=== PATIENT | female | born 1985 | race Caucasian/White ===

== ENCOUNTER 2016-12-29 10:49 | Emergency (ER) | payer OTHER ==
[~2016-12-29] VITALS: Ht 172.7 cm; Wt 97.5 kg
[~2016-12-29 10:49] MED LIST: BACL10TA PO; BUPR150T6 PO; CLON0.5T3 PO; HYDR50CA2 PO; LAMO100T PO; PANT40TA5 PO; PARO20TA55 PO; TRAM50TA PO
[2016-12-29 11:34] VITALS: BP 145/82
--- NOTE | 2016-12-29 11:50 | PHYS DOC ---
Past Medical History Past Medical History: Anxiety, Bipolar, Depression, IBS, Unknown, Other Additional Past Medical Histor: PTSD, 2 fx vertebrae, 2 herniated discs, SMA syndrome Past Surgical History: Cholecystectomy, Tonsillectomy, Tubal ligation, Other Additional Past Surgical Histo: "duodenojejunostomy" Alcohol Use: None Drug Use: Marijuana Adult General Chief Complaint Chief Complaint: SORE THROAT [facility] HPI Patient is a 31 year old female presents emergency room today with 3 complaints : 1. Atraumatic sore throat that began this morning when she woke up. Patient reports that she's had 2 children in the home with strep throat over the past 2- 3 weeks. She herself denies any fevers or chills. She reports mild pain with swallowing. She denies antibiotic use, hospitalization or foreign travel within the past 90 days. 2. Right hip pain secondary to a slip and fall 4 days ago while at home. Patient complains that she slipped at the top of the stairs and landed on her right hip. She states that he has been bruised and painful since that period of time. She has been able to bear weight and walk. 3. Pain to the left hand secondary to striking her hand on a carpet tack strip with her slip and fall. She states that the redness and swelling has settled down and that she just currently wants the wound checked for evidence of infection. Review of Systems Review of Systems Constitutional: Denies fever or chills [] Eyes: Denies change in visual acuity, redness, or eye pain [] HENT: Denies nasal congestion or sore throat [] Respiratory: Denies cough or shortness of breath [] Cardiovascular: No additional information not addressed in HPI [] GI: Denies abdominal pain, nausea, vomiting, bloody stools or diarrhea [] : Denies dysuria or hematuria [] Musculoskeletal: Denies back pain or joint pain [] Integument: Denies rash or skin lesions [] Neurologic: Denies headache, focal weakness or sensory changes [] Endocrine: Denies polyuria or polydipsia [] Allergies Allergies Allergies Coded Allergies Type Severity Reaction Last Updated Verified aspirin Allergy Intermediate 06/17/16 Yes bee venom (honey bee) Allergy Intermediate SWELLING 06/17/16 Yes Penicillins Adverse Reaction Intermediate 06/17/16 Yes Physical Exam Physical Exam Constitutional: Well developed, well nourished, no acute distress, non-toxic appearance. [] HENT: Normocephalic, atraumatic, bilateral external ears normal, oropharynx moist, no oral exudates, nose normal. There is no trismus or hot potato speech. Posterior oropharynx is with only mild erythema and cobblestoning. There is no tonsillar exudate, peritonsillar swelling or uvular deviation. Eyes: PERRLA, EOMI, conjunctiva normal, no discharge. [] Neck: Normal range of motion, no tenderness, supple, no stridor. There is no meningismus or cervical lymphadenopathy. Cardiovascular:Heart rate regular rhythm, no murmur [] Lungs & Thorax: Bilateral breath sounds clear to auscultation [] Abdomen: Bowel sounds normal, soft, no tenderness, no masses, no pulsatile masses. [] Skin: Warm, dry, no erythema, no rash. [] Back: No tenderness, no CVA tenderness. [] Extremities: Right hip with a bruise to the posterior lateral aspect of the gluteus. There is tenderness in this area. There is no instability or crepitus. Patient's hip is stable without crepitation upon flexion, extension or circumduction. Patient's pelvis is nontender to palpation and is stable. Neurologic: Alert and oriented X 3, normal motor function, normal sensory function, no focal deficits noted. [] Psychologic: Affect normal, judgement normal, mood normal. [] Current Patient Data Vital Signs Vital Signs Date Time Temp Pulse Resp B/P Pulse Ox O2 Delivery O2 Flow Rate FiO2 12/29/16 11:34 98.3 87 18 145/82 99 Room Air 98.3 Lab Values Laboratory Tests Test 12/29/16 12:05 Group A Streptococcus Rapid Negative (NEGATIVE) EKG EKG [] Radiology/Procedures Radiology/Procedures [[facility] [address] [place] [address] IMAGING REPORT Signed PATIENT: KELLY SANTOS ACCOUNT: [id number] : 1985 LOCATION: ER AGE: 31 SEX: F EXAM STATUS: REG ER ORD. PHYSICIAN: PITA GEE REASON: pain after fall 4 days ago PROCEDURE: HIP RIGHT 2V WITH PELVIS Pelvis with right hip, 3 views, 12/29/2016: History: Fall, pain No fracture or dislocation is identified. The hip joints are well preserved. 2 surgical clips overlie the upper pelvis. Sclerotic changes are evident at the symphysis pubis and both sacroiliac joints. A focal area of sclerosis in the left iliac bone is probably a bone island. IMPRESSION: No acute pelvic or right hip abnormality is detected. DICTATED and SIGNED BY: TRACIE LUKE MD DATE: 12/29/16 3499 CC: PITA GEE; NO PCP ~ ] Course & Med Decision Making Course & Med Decision Making Pertinent Labs and Imaging studies reviewed. (See chart for details) [] Dragon Disclaimer Dragon Disclaimer This electronic medical record was generated, in whole or in part, using a voice recognition dictation system. Departure Departure Impression: Primary Impression: Pharyngitis Additional Impression: Contusion, hip Disposition: 01 HOME, SELF-CARE Condition: GOOD Referrals: NO PCP (PCP) Patient Instructions: Contusion, [id number], Viral and Bacterial Pharyngitis , [id number] Additional Instructions: 1. Rapid strep test here today is negative. You will be contacted if the culture is positive. At this time, there is no evidence of need for antibiotics. 2. The x-rays of your right hip and pelvis are normal. You bruised your hip. 3. Review the discharge instructions for self-care and reasons to return the emergency department. 4. You can take ibuprofen every 8 hours or naproxen every 12 hours for the bruise and hip pain. 5. Be sure to follow up with your primary care doctor within the next 5-7 days. Problem Qualifiers PITA GEE Dec 29, 2016 11:50
[2016-12-29 12:37] LABS: NEGATIVE OBC STREP NEG; POSITIVE OBC STREP POS
--- NOTE | 2016-12-29 12:49 | RAD ---
Pelvis with right hip, 3 views, 12/29/2016: History: Fall, pain No fracture or dislocation is identified. The hip joints are well preserved. 2 surgical clips overlie the upper pelvis. Sclerotic changes are evident at the symphysis pubis and both sacroiliac joints. A focal area of sclerosis in the left iliac bone is probably a bone island. IMPRESSION: No acute pelvic or right hip abnormality is detected.
== END 2016-12-29 13:04 | disposition home or self-care (01) ==
LOC: ER 10:52
DX: J02.9 Acute pharyngitis, unspecified (principal); S70.01XA Contusion of right hip, initial encounter; F31.9 Bipolar disorder, unspecified; F12.10 Cannabis abuse, uncomplicated; F43.10 Post-traumatic stress disorder, unspecified; K58.9 Irritable bowel syndrome, unspecified; Z90.49 Acquired absence of other specified parts of digestive tract; Z88.5 Allergy status to narcotic agent; Z88.0 Allergy status to penicillin; Z88.6 Allergy status to analgesic agent; Z91.030 Bee allergy status; W10.8XXA Fall (on) (from) other stairs and steps, initial encounter; Y93.89 Activity, other specified; Y92.098 Other place in other non-institutional residence as the place of occurrence of the external cause; Y99.8 Other external cause status
CPT/HCPCS: 73502; 87070; 87880; 99285-25

== ENCOUNTER 2017-01-03 09:26 | Emergency (ER) | payer OTHER ==
[~2017-01-03] VITALS: Ht 172.7 cm; Wt 99.8 kg
[2017-01-03 09:33] VITALS: BP 138/83
--- NOTE | 2017-01-03 10:24 | PHYS DOC ---
Past Medical History Past Medical History: Anxiety, Bipolar, Depression, IBS, Unknown, Other Additional Past Medical Histor: PTSD, 2 fx vertebrae, 2 herniated discs, SMA syndrome Past Surgical History: Cholecystectomy, Tonsillectomy, Tubal ligation, Other Additional Past Surgical Histo: "duodenojejunostomy" Alcohol Use: None Drug Use: Marijuana Adult General Chief Complaint Chief Complaint: Congestion HPI HPI Patient is a 31 year old female presents emergency department stating that she was seen here last for sore throat. She states that they did swab her throat for strep at that time was negative. She does state that she's been having sick family members daughter and son. Parent denies any fever chills or nausea vomiting recent time. She does state however she's had a cough has been productive green. Review of Systems Review of Systems Constitutional: Denies fever or chills [] Eyes: Denies change in visual acuity, redness, or eye pain [] HENT: nasal congestion denies sore throat [] Respiratory: productive cough denies shortness of breath [] Cardiovascular: No additional information not addressed in HPI [] GI: Denies abdominal pain, nausea, vomiting, bloody stools or diarrhea [] : Denies dysuria or hematuria [] Musculoskeletal: Denies back pain or joint pain [] Integument: Denies rash or skin lesions [] Neurologic: Denies headache, focal weakness or sensory changes [] Allergies Allergies Allergies Coded Allergies Type Severity Reaction Last Updated Verified aspirin Allergy Intermediate 06/17/16 Yes bee venom (honey bee) Allergy Intermediate SWELLING 06/17/16 Yes Penicillins Adverse Reaction Intermediate 06/17/16 Yes Physical Exam Physical Exam Constitutional: Well developed, well nourished, no acute distress, non-toxic appearance. [] HENT: Normocephalic, atraumatic, bilateral external ears normal, oropharynx moist, no oral exudates, nose normal. Bilateral TM normal, throat without erythema or exudate. Patient with maxillary sinus tenderness Eyes: PERRLA, EOMI, conjunctiva normal, no discharge. [] Neck: Normal range of motion, no tenderness, supple, no stridor. [] Cardiovascular:Heart rate regular rhythm, no murmur [] Lungs & Thorax: Bilateral breath sounds clear to auscultation [] Skin: Warm, dry, no erythema, no rash. [] Back: No tenderness Extremities: No tenderness, no cyanosis, no clubbing, ROM intact, no edema. [] Neurologic: Alert and oriented X 3, normal motor function, normal sensory function, no focal deficits noted. [] Psychologic: Affect normal, judgement normal, mood normal. [] Current Patient Data Vital Signs Vital Signs Date Time Temp Pulse Resp B/P Pulse Ox O2 Delivery O2 Flow Rate FiO2 01/03/17 09:33 97.8 85 20 100 Room Air 97.8 Lab Values Laboratory Tests Test 01/03/17 10:05 Influenza Type A Antigen Negative (NEGATIVE) Influenza Type B Antigen Negative (NEGATIVE) EKG EKG [] Radiology/Procedures Radiology/Procedures [][facility] [address] [place], [place] [id number] IMAGING REPORT Signed PATIENT: KELLY SANTOS ACCOUNT: [id number] : 1985 LOCATION: ER AGE: 31 SEX: F EXAM STATUS: REG ER ORD. PHYSICIAN: TATA CATALAN NP REASON: cough, congestion for 6 days PROCEDURE: CHEST PA & LATERAL Chest, 2 views, 01/03/2017: History: Cough, congestion Comparison is made to a study from 07/10/2012. The heart size and pulmonary vascularity are normal. No pulmonary infiltrates are seen. There is no evidence of pleural fluid. IMPRESSION: No acute cardiopulmonary abnormality is detected. DICTATED and SIGNED BY: TRACIE LUKE MD DATE: 01/03/17 1044 CC: TATA CATALAN TILE DECORATOR; NO PCP ~ Course & Med Decision Making Course & Med Decision Making Pertinent Labs and Imaging studies reviewed. (See chart for details) Influenza swab was negative. Chest x-ray was negative. Patient will be placed on doxycycline for a sinus infection. Patient be discharged home in stable condition since symptoms to return back to emergency department has been provided. Patient agrees with discharge instructions treatment regimens and follow-up recommendations. [] Dragon Disclaimer Dragon Disclaimer This electronic medical record was generated, in whole or in part, using a voice recognition dictation system. Departure Departure Impression: Primary Impression: Sinusitis Disposition: 01 HOME, SELF-CARE Condition: STABLE Referrals: NO PCP (PCP) Patient Instructions: Sinusitis, Hwma-[id number] Additional Instructions: Activity as tolerated. Medication as prescribed. Tylenol or ibuprofen for fever chills or generalized body aches and discomfort Drink plenty of fluids. Primary care physician next 5-7 days. Return back to emergency department sign symptoms become worse. Scripts Doxycycline Hyclate 100 Mg Capsule1 Cap PO BID #20 CAP Prov:TATA CATALAN NP 01/03/17 TATA CATALAN NP Jan 03, 2017 10:24
[2017-01-03 10:47] LABS: OBC FLU VALID
--- NOTE | 2017-01-03 10:48 | RAD ---
Chest, 2 views, 01/03/2017: History: Cough, congestion Comparison is made to a study from 07/10/2012. The heart size and pulmonary vascularity are normal. No pulmonary infiltrates are seen. There is no evidence of pleural fluid. IMPRESSION: No acute cardiopulmonary abnormality is detected.
[2017-01-03] MEDS ORDERED: DOXY100C2 PO (10:57)
== END 2017-01-03 11:59 | disposition home or self-care (01) ==
LOC: ER 09:26
DX: J32.9 Chronic sinusitis, unspecified (principal); K58.9 Irritable bowel syndrome, unspecified; F43.10 Post-traumatic stress disorder, unspecified; F31.9 Bipolar disorder, unspecified; G12.9 Spinal muscular atrophy, unspecified; F12.10 Cannabis abuse, uncomplicated; Z98.890 Other specified postprocedural states; Z88.0 Allergy status to penicillin; Z88.6 Allergy status to analgesic agent; Z91.030 Bee allergy status
CPT/HCPCS: 71020; 87804; 99285-25

== ENCOUNTER 2017-03-14 13:56 | Emergency (ER) | payer OTHER ==
[~2017-03-14] VITALS: Ht 172.7 cm; Wt 98.9 kg
[~2017-03-14 13:56] MED LIST changes: +DOXY100C2 PO
[2017-03-14 14:56] LABS: BASO # 0.1 x10^3/uL (0.0-0.2); BASO % 1 % (0-3); EOS % 1 % (0-3); HEMATOCRIT 36.4 % (36.0-47.0); HEMOGLOBIN 11.9 g/dL (12.0-15.5); LYMPH # 5.1 x10^3/uL (1.0-4.8); LYMPH % 43 % (24-48); MEAN CORPUSCULAR HEMOGLOBIN 26 pg (25-35); MEAN CORPUSCULAR HGB CONC 33 g/dL (31-37); MEAN CORPUSCULAR VOLUME 80 fL (79-100); MONO % 7 % (0-9); NEUT % 48 % (31-73); PLATELET COUNT 207 x10^3/uL (140-400); RED BLOOD COUNT 4.57 x10^6/uL (3.50-5.40); WHITE BLOOD COUNT 11.9 x10^3/uL (4.0-11.0)
[2017-03-14 14:58] LABS: BILIRUBIN,URINE NEGATIVE (NEG); GLUCOSE,URINE NEGATIVE (NEG); NITRITE,URINE NEGATIVE (NEG); PROTEIN,URINE NEGATIVE (NEG-TRACE); UROBILINOGEN,URINE 0.2 mg/dL (0.2 mg/dL)
--- NOTE | 2017-03-14 15:05 | PHYS DOC ---
Past Medical History Past Medical History: Anxiety, Bipolar, Depression, IBS, Unknown, Other Additional Past Medical Histor: PTSD, 2 fx vertebrae, 2 herniated discs, SMA syndrome Past Surgical History: Cholecystectomy, Tonsillectomy, Tubal ligation, Other Additional Past Surgical Histo: "duodenojejunostomy" Alcohol Use: None Drug Use: Marijuana Adult General Chief Complaint Chief Complaint: OTHER COMPLAINTS HPI HPI Patient is a 32 year old female presenting to the emergency department for evaluation of paresthesias and pain status post electric shock injury. She says that she was cleaning and was wiping down the electric cord for her refrigerator when she accidentally touched it with her left hand and felt an intense shock and was stuck on the cord for approximately 10 seconds. She has been feeling paresthesias and shooting pain into various areas that is intermittent for the past several hours and she said she was concerned about it and came to the emergency department. There is no open skin wounds fevers chills nausea vomiting chest pain shortness of breath or dizziness. No unilateral weakness. Review of Systems Review of Systems Constitutional: Denies fever or chills [] Eyes: Denies change in visual acuity, redness, or eye pain [] Respiratory: Denies cough or shortness of breath [] Cardiovascular: No CP GI: Denies abdominal pain, nausea, vomiting, bloody stools or diarrhea [] Musculoskeletal: myalgias and arthralgias Integument: Denies rash or skin lesions [] Neurologic: Denies headache, focal weakness.+ diffuse sensory changes [] Allergies Allergies Allergies Coded Allergies Type Severity Reaction Last Updated Verified aspirin Allergy Intermediate 06/17/16 Yes bee venom (honey bee) Allergy Intermediate SWELLING 06/17/16 Yes Penicillins Adverse Reaction Intermediate 06/17/16 Yes Physical Exam Physical Exam Constitutional: Well developed, well nourished, no acute distress, non-toxic appearance. [] Eyes: PERRLA, EOMI, conjunctiva normal, no discharge. [] Cardiovascular:Heart rate regular rhythm, no murmur [] Lungs & Thorax: Bilateral breath sounds clear to auscultation [] Abdomen: Bowel sounds normal, soft, no tenderness, no masses, no pulsatile masses. [] Skin: Warm, dry, no erythema, no rash. [] Extremities: No tenderness, no cyanosis, no clubbing, ROM intact, no edema. [] Neurologic: Alert and oriented X 3, normal motor function, normal sensory function, no focal deficits noted. [] Current Patient Data Lab Values Laboratory Tests Test 03/14/17 14:45 White Blood Count 11.9 x10^3/uL (4.0-11.0) H Red Blood Count 4.57 x10^6/uL (3.50-5.40) Hemoglobin 11.9 g/dL (12.0-15.5) L Hematocrit 36.4 % (36.0-47.0) Mean Corpuscular Volume 80 fL (79-100) Mean Corpuscular Hemoglobin 26 pg (25-35) Mean Corpuscular Hemoglobin Concent 33 g/dL (31-37) Red Cell Distribution Width 16.0 % (11.5-14.5) H Platelet Count 207 x10^3/uL (140-400) Neutrophils (%) (Auto) 48 % (31-73) Lymphocytes (%) (Auto) 43 % (24-48) Monocytes (%) (Auto) 7 % (0-9) Eosinophils (%) (Auto) 1 % (0-3) Basophils (%) (Auto) 1 % (0-3) Neutrophils # (Auto) 5.7 x10^3uL (1.8-7.7) Lymphocytes # (Auto) 5.1 x10^3/uL (1.0-4.8) H Monocytes # (Auto) 0.9 x10^3/uL (0.0-1.1) Eosinophils # (Auto) 0.2 x10^3/uL (0.0-0.7) Basophils # (Auto) 0.1 x10^3/uL (0.0-0.2) Urine Collection Type Unknown Urine Color Yellow Urine Clarity Clear Urine pH 6.0 Urine Specific [place] 1.025 Urine Protein Negative mg/dL (NEG-TRACE) Urine Glucose (UA) Negative mg/dL (NEG) Urine Ketones (Stick) Negative mg/dL (NEG) Urine Blood Negative (NEG) Urine Nitrite Negative (NEG) Urine Bilirubin Negative (NEG) Urine Urobilinogen Dipstick 0.2 mg/dL (0.2 mg/dL) Urine Leukocyte Esterase Moderate (NEG) Urine RBC 0 /HPF (0-2) Urine WBC 11-20 /HPF (0-4) Urine Squamous Epithelial Cells Many /LPF Urine Bacteria Many /HPF (0-FEW) Urine Mucus Marked /LPF Sodium Level 139 mmol/L (136-145) Potassium Level 3.6 mmol/L (3.5-5.1) Chloride Level 104 mmol/L (98-107) Carbon Dioxide Level 26 mmol/L (21-32) Anion Gap 9 (6-14) Blood Urea Nitrogen 17 mg/dL (7-20) Creatinine 0.8 mg/dL (0.6-1.0) Estimated GFR (Cockcroft-Gault) 83.7 BUN/Creatinine Ratio 21 (6-20) H Glucose Level 75 mg/dL (70-99) Lactic Acid Level 0.8 mmol/L (0.4-2.0) Calcium Level 8.5 mg/dL (8.5-10.1) Total Bilirubin 0.3 mg/dL (0.2-1.0) Aspartate Amino Transferase (AST) 16 U/L (15-37) Alanine Aminotransferase (ALT) 23 U/L (14-59) Alkaline Phosphatase 104 U/L (46-116) Creatine Kinase 216 U/L (26-192) H Troponin I Quantitative < 0.017 ng/mL (0.000-0.055) Total Protein 7.4 g/dL (6.4-8.2) Albumin 3.4 g/dL (3.4-5.0) Albumin/Globulin Ratio 0.9 (1.0-1.7) L Laboratory Tests 03/14/17 14:45 Laboratory Tests 03/14/17 14:45 EKG EKG Normal sinus rhythm with normal axis no deviation no ST elevation or depression and normal T waves. Radiology/Procedures Radiology/Procedures [] Course & Med Decision Making Course & Med Decision Making I searched her body for any electric shock injury and could not find anything. Her EKG is normal and I will get labs and then reassess. Labs are unremarkable for acute pathology. CK is slightly elevated so recommend drinking plenty of fluids and ibuprofen for pain. Patient aware and agreeable with plan for discharge and verbalized understanding of the need for short-term follow-up and strict ER return precautions discussed worsening pain weakness or other general concerns. Dragon Disclaimer Dragon Disclaimer This electronic medical record was generated, in whole or in part, using a voice recognition dictation system. Departure Departure Impression: Primary Impression: Electric shock Additional Impression: Rhabdomyolysis Disposition: HOME, SELF-CARE Condition: GOOD Referrals: NO PCP (PCP) Patient Instructions: Electric Shock Injury Additional Instructions: DRINK PLENTY OF FLUIDS AND TAKE IBUPROFEN FOR PAIN. Scripts Ciprofloxacin Hcl (CIPRO) 250 Mg Tablet 1 TAB PO BID, #6 TAB Prov: KYLIE ARIAS DO 03/14/17 Problem Qualifiers Primary Impression: Electric shock Encounter type: initial encounter Qualified Codes: T75.4XXA - Electrocution , initial encounter KYLIE ARIAS DO March 14, 2017 15:05
[2017-03-14 15:08] VITALS: BP 129/74
[2017-03-14 15:13] LABS: CALCIUM 8.5 mg/dL (8.5-10.1); CREATININE 0.8 mg/dL (0.6-1.0); GFR 83.7; POTASSIUM 3.6 mmol/L (3.5-5.1)
[2017-03-14 15:15] LABS: BACTERIA,URINE MANY /HPF (0-FEW); RBC,URINE 0 /HPF (0-2); SQUAMOUS EPITHELIAL CELL,UR MANY /LPF
--- NOTE | 2017-03-14 15:17 | EKG ---
[facility] [address] [place] [address] Test Date: 2017-03-14 Test Time: 14:38:29 Pat Name: KELLY SANTOS Department: Room: Gender: F [employer]: : 1985 Requested By: KYLIE ARIAS Order Number: [id number] Reading MD: Franky Cabezas Measurements Intervals [place] Rate: 71 P: 31 CT: 184 QRS: 10 QRSD: 86 T: 18 QT: 380 QTc: 418 Interpretive Statements SINUS RHYTHM Electronically Signed On 03-20-2017 9:09:22 CDT by Franky Cabezas
[2017-03-14 15:18] LABS: ALBUMIN 3.4 g/dL (3.4-5.0); ALBUMIN/GLOBULIN RATIO 0.9 (1.0-1.7); TOTAL BILIRUBIN 0.3 mg/dL (0.2-1.0); TOTAL PROTEIN 7.4 g/dL (6.4-8.2)
[2017-03-14] MEDS ORDERED: CIPR250T30 PO (15:44)
== END 2017-03-14 15:55 | disposition home or self-care (01) ==
LOC: ER 13:56
DX: T75.4XXA Electrocution, initial encounter (principal); M62.82 Rhabdomyolysis; R74.8 Abnormal levels of other serum enzymes; F41.9 Anxiety disorder, unspecified; F31.9 Bipolar disorder, unspecified; K58.9 Irritable bowel syndrome, unspecified; F43.10 Post-traumatic stress disorder, unspecified; G12.9 Spinal muscular atrophy, unspecified; F12.10 Cannabis abuse, uncomplicated; Z88.0 Allergy status to penicillin; Z88.6 Allergy status to analgesic agent; Z91.030 Bee allergy status; W86.1XXA Exposure to industrial wiring, appliances and electrical machinery, initial encounter
CPT/HCPCS: 36415; 80053; 81001; 82550; 83605; 84484; 85027; 87086; 93005; 99285-25

== ENCOUNTER 2017-03-20 08:41 | Emergency (ER) | payer OTHER ==
[~2017-03-20 08:41] MED LIST changes: +CIPR250T30 PO
[2017-03-20 09:23] VITALS: BP 149/90
[2017-03-20] MEDS ORDERED: PARO20TA55 PO (10:48)
--- NOTE | 2017-03-20 10:48 | PHYS DOC ---
Past Medical History Past Medical History: Anxiety, Bipolar, Depression, IBS, Unknown, Other Additional Past Medical Histor: PTSD, 2 fx vertebrae, 2 herniated discs, SMA syndrome,PSYCHOSIS Past Surgical History: Cholecystectomy, Tonsillectomy, Tubal ligation, Other Additional Past Surgical Histo: "duodenojejunostomy" Alcohol Use: None Drug Use: Marijuana Adult General Chief Complaint Chief Complaint: MEDICATION REFILL HPI HPI Patient is a 32 year old female presenting to the emergency department with child for a cough. Cough is nonproductive and she has no fevers chills nausea vomiting or shortness of breath. She has not been taking her psychiatric medications including her Paxil which she is out of that she is requesting a refill. She feels tingling in all parts of her body including both extremities at different times however she is not having any pain currently. She is concerned this is related to the electrical shock that I saw her for last week. Review of Systems Review of Systems Constitutional: Denies fever or chills [] Eyes: Denies change in visual acuity, redness, or eye pain [] Respiratory: + cough. No shortness of breath [] Neurologic: Denies headache, focal weakness. + sensory changes [] Allergies Allergies Allergies Coded Allergies Type Severity Reaction Last Updated Verified aspirin Allergy Intermediate 06/17/16 Yes bee venom (honey bee) Allergy Intermediate SWELLING 06/17/16 Yes Penicillins Adverse Reaction Intermediate 06/17/16 Yes Physical Exam Physical Exam Constitutional: Well developed, well nourished, no acute distress, non-toxic appearance. [] Neck: Normal range of motion, no tenderness, supple, no stridor. [] Cardiovascular:Heart rate regular rhythm, no murmur [] Lungs & Thorax: Bilateral breath sounds clear to auscultation [] Extremities: No tenderness, no cyanosis, no clubbing, ROM intact, no edema. [] Neurologic: Alert and oriented X 3, normal motor function, normal sensory function, no focal deficits noted. [] Current Patient Data Vital Signs Vital Signs Date Time Temp Pulse Resp B/P (MAP) Pulse Ox O2 Delivery O2 Flow Rate FiO2 03/20/17 09:23 97.3 77 18 98 Room Air 97.3 EKG EKG [] Radiology/Procedures Radiology/Procedures [] Course & Med Decision Making Course & Med Decision Making Patient discharged in stable condition with refill for her Paxil and supportive care for her cough. Patient told to follow with her psychiatrist and PCP in the next 2-3 days and come back to the ER sooner with any worsening symptoms. Camryn Disclaimer Camryn Disclaimer This electronic medical record was generated, in whole or in part, using a voice recognition dictation system. Departure Departure Impression: Primary Impression: Cough Disposition: 01 HOME, SELF-CARE Condition: GOOD Referrals: NO PCP (PCP) Patient Instructions: Cough, Adult Scripts Paroxetine Hcl (PAXIL) 20 Mg Tablet 1 TAB PO DAILY, #7 TAB 5 Refills Prov: KYLIE ARIAS DO 03/20/17 KYLIE ARIAS DO March 20, 2017 10:48
== END 2017-03-20 10:58 | disposition home or self-care (01) ==
LOC: ER 09:48
DX: Z76.0 Encounter for issue of repeat prescription (principal); R05 Cough; R20.2 Paresthesia of skin; F41.9 Anxiety disorder, unspecified; F31.9 Bipolar disorder, unspecified; K58.9 Irritable bowel syndrome, unspecified; F43.10 Post-traumatic stress disorder, unspecified; F12.10 Cannabis abuse, uncomplicated; Z88.6 Allergy status to analgesic agent; Z88.0 Allergy status to penicillin; Z91.030 Bee allergy status
CPT/HCPCS: 99283

== ENCOUNTER 2017-05-11 16:24 | Emergency (ER) | payer OTHER ==
[~2017-05-11] VITALS: Ht 172.7 cm; Wt 97.5 kg
[~2017-05-11 16:24] MED LIST changes: -PARO20TA55 PO; +PARO20TA99 PO
--- NOTE | 2017-05-11 17:36 | PHYS DOC ---
Past Medical History Past Medical History: Anxiety, Bipolar, Depression, IBS, Unknown, Other Additional Past Medical Histor: PTSD, 2 fx vertebrae, 2 herniated discs, SMA syndrome,PSYCHOSIS Past Surgical History: Cholecystectomy, Tonsillectomy, Tubal ligation, Other Additional Past Surgical Histo: "duodenojejunostomy" Alcohol Use: None Drug Use: Marijuana Adult General Chief Complaint Chief Complaint: BACK PAIN - NO INJURY HPI HPI Patient is a 32 year old female with history of bipolar, IBS, depression, who presents today with moderate left mid back pain radiating to her upper back that began this morning when she woke up. Patient describes the pain as sharp worse on deep breaths. Patient states the last time she had similar pain she had pleurisy. She also states she has history of kidney stones. Patient denies any chest pain. Denies any recent hospitalizations, denies any unilateral leg pain, denies any hormone use. Patient denies any coughing or congestion. Patient is also complaining of a rash on her bilateral lower extremities that began on may after sitting on grass. She is writhing in pain Review of Systems Review of Systems Constitutional: Denies fever or chills [] Eyes: Denies change in visual acuity, redness, or eye pain [] HENT: Denies nasal congestion or sore throat [] Respiratory: See history of present illness Cardiovascular: No additional information not addressed in HPI [] GI: Denies abdominal pain, nausea, vomiting, bloody stools or diarrhea [] : Denies dysuria or hematuria [] Musculoskeletal: Left mid back pain radiating to the upper back. Integument: Denies rash or skin lesions [] Neurologic: Denies headache, focal weakness or sensory changes [] Endocrine: Denies polyuria or polydipsia [] Current Medications Current Medications Current Medications Medications (Trade) Dose Ordered Sig/Salvador Start Time Stop Time Status Last Admin Dose Admin Dexamethasone Sodium Phosphate (Decadron) 10 mg 1X ONCE 05/11/17 17:45 05/11/17 17:46 DC 05/11/17 17:55 10 MG Famotidine (Pepcid) 20 mg 1X ONCE 05/11/17 18:45 05/11/17 18:46 DC 05/11/17 18:38 20 MG Fentanyl Citrate (Fentanyl 2ml Vial) 50 mcg 1X ONCE 05/11/17 19:15 05/11/17 19:16 DC 05/11/17 19:27 50 MCG Info (Do NOT chart on this entry -- for MONITORING) 1 each PRN DAILY PRN 05/11/17 19:15 05/13/17 19:14 Iohexol (Omnipaque 300 Mg/ml) 75 ml 1X ONCE 05/11/17 19:00 05/11/17 19:01 DC 05/11/17 19:14 75 ML Morphine Sulfate 5 mg 1X ONCE 05/11/17 17:45 05/11/17 17:46 DC 05/11/17 17:55 5 MG Multi-Ingredient Mouthwash/Gargle (Gi Cocktail Single Dose) 15 ml 1X ONCE 05/11/17 18:45 05/11/17 18:46 DC 05/11/17 18:37 15 ML Ondansetron HCl (Zofran) 4 mg 1X ONCE 05/11/17 19:15 05/11/17 19:16 DC 05/11/17 19:27 4 MG Sodium Chloride 1,000 ml @ 1,000 mls/hr 1X ONCE 05/11/17 17:45 05/11/17 18:44 DC 05/11/17 17:55 1,000 MLS/HR Allergies Allergies Allergies Coded Allergies Type Severity Reaction Last Updated Verified aspirin Allergy Intermediate 06/17/16 Yes venom-honey bee Allergy Intermediate SWELLING 06/17/16 Yes Penicillins Adverse Reaction Intermediate 06/17/16 Yes Physical Exam Physical Exam Constitutional: Well developed, well nourished, non-toxic appearance. Patient is writhing in pain HENT: Normocephalic, atraumatic, bilateral external ears normal, oropharynx moist, no oral exudates, nose normal. [] Eyes: PERRLA, EOMI, conjunctiva normal, no discharge. [] Neck: Normal range of motion, no tenderness, supple, no stridor. [] Cardiovascular:Heart rate regular rhythm, no murmur [] Lungs & Thorax: Bilateral breath sounds clear to auscultation [] Abdomen: Bowel sounds normal, soft, no tenderness, no masses, no pulsatile masses. [] Skin: Small amount of erythematous papular rash on bilateral inner thighs. Back: No tenderness, no CVA tenderness. [] Extremities: No tenderness, no cyanosis, no clubbing, ROM intact, no edema. [] Neurologic: Alert and oriented X 3, normal motor function, normal sensory function, no focal deficits noted. [] Psychologic: Affect normal, judgement normal, mood normal. [] Current Patient Data Vital Signs Vital Signs Date Time Temp Pulse Resp B/P (MAP) Pulse Ox O2 Delivery O2 Flow Rate FiO2 05/11/17 17:03 97.6 95 18 100 Room Air 97.6 Lab Values Laboratory Tests Test 05/11/17 16:41 05/11/17 17:31 05/11/17 17:49 POC Urine HCG, Qualitative Hcg negative (Negative) Urine Color Yellow Urine Clarity Clear Urine pH 7.5 Urine Specific [place] 1.020 Urine Protein Negative mg/dL (NEG-TRACE) Urine Glucose (UA) Negative mg/dL (NEG) Urine Ketones (Stick) Negative mg/dL (NEG) Urine Blood Negative (NEG) Urine Nitrite Negative (NEG) Urine Bilirubin Negative (NEG) Urine Urobilinogen Dipstick 1.0 mg/dL (0.2 mg/dL) Urine Leukocyte Esterase Small (NEG) Urine RBC 0 /HPF (0-2) Urine WBC 1-4 /HPF (0-4) Urine Squamous Epithelial Cells Occ /LPF Urine Bacteria Few /HPF (0-FEW) Urine Mucus Mod /LPF White Blood Count 14.0 x10^3/uL (4.0-11.0) H Red Blood Count 4.92 x10^6/uL (3.50-5.40) Hemoglobin 12.8 g/dL (12.0-15.5) Hematocrit 39.6 % (36.0-47.0) Mean Corpuscular Volume 81 fL (79-100) Mean Corpuscular Hemoglobin 26 pg (25-35) Mean Corpuscular Hemoglobin Concent 32 g/dL (31-37) Red Cell Distribution Width 15.9 % (11.5-14.5) H Platelet Count 227 x10^3/uL (140-400) Neutrophils (%) (Auto) 48 % (31-73) Lymphocytes (%) (Auto) 41 % (24-48) Monocytes (%) (Auto) 8 % (0-9) Eosinophils (%) (Auto) 2 % (0-3) Basophils (%) (Auto) 1 % (0-3) Neutrophils # (Auto) 6.8 x10^3uL (1.8-7.7) Lymphocytes # (Auto) 5.8 x10^3/uL (1.0-4.8) H Monocytes # (Auto) 1.1 x10^3/uL (0.0-1.1) Eosinophils # (Auto) 0.3 x10^3/uL (0.0-0.7) Basophils # (Auto) 0.1 x10^3/uL (0.0-0.2) Prothrombin Time 13.3 SEC (11.7-14.0) Prothrombin Time INR 1.1 (0.8-1.1) PTT 29 SEC (24-38) D-Dimer (Jayna) 0.79 ug/mlFEU (0.00-0.50) H Sodium Level 144 mmol/L (136-145) Potassium Level 4.1 mmol/L (3.5-5.1) Chloride Level 106 mmol/L (98-107) Carbon Dioxide Level 29 mmol/L (21-32) Anion Gap 9 (6-14) Blood Urea Nitrogen 9 mg/dL (7-20) Creatinine 0.9 mg/dL (0.6-1.0) Estimated GFR (Cockcroft-Gault) 73.0 Glucose Level 86 mg/dL (70-99) Calcium Level 8.7 mg/dL (8.5-10.1) Creatine Kinase 134 U/L (26-192) Creatine Kinase MB (Mass) 0.9 ng/mL (0.0-3.6) Creatine Kinase MB Relative Index 0.7 % (0-4) Troponin I Quantitative < 0.017 ng/mL (0.000-0.055) Urine Opiates Screen Neg (NEG) Urine Methadone Screen Neg (NEG) Urine Barbiturates Neg (NEG) Urine Phencyclidine Screen Neg (NEG) Urine Amphetamine/Methamphetamine Neg (NEG) Urine Benzodiazepines Screen Neg (NEG) Urine Cocaine Screen Neg (NEG) Urine Cannabinoids Screen Pos (NEG) Ethyl Alcohol Level < 10 mg/dL (0-10) Urine Ethyl Alcohol Neg (NEG) Laboratory Tests 05/11/17 17:49 Laboratory Tests 05/11/17 17:49 EKG EKG [] Radiology/Procedures Radiology/Procedures [] PATIENT: KELLY SANTOS ACCOUNT: [id number] : 1985 LOCATION: ER AGE: 32 SEX: F EXAM STATUS: REG ER ORD. PHYSICIAN: SEBAS RICHMOND APRN REASON: elevated d dimer PROCEDURE: CT ANGIOGRAPHY CHEST Indication: Chest pain and back pain as well as elevated d-dimer. Axial imaging through the chest was performed after the administration of intravenous contrast and utilizing the CT angiography protocol. Multiplanar, 3-D and MIP reformations were also performed. One or more of the following individualized dose reduction techniques were utilized for this examination: 1. Automated exposure control 2. Adjustment of the mA and/or kV according to patient size 3. Use of iterative reconstruction technique Evaluation of the pulmonary arterial system is without evidence of thromboembolism. No filling defects are detected. The thoracic aorta is normal caliber. No dissection is seen. No pericardial or pleural fluid is identified. No parenchymal infiltrate, nodule or mass is identified. The upper abdomen is unremarkable. IMPRESSION: No evidence of pulmonary embolus or thoracic aortic dissection. Electronically signed by: Jose Eduardo Hernandez MD (05/11/2017 7:37 PM) [facility] DICTATED and SIGNED BY: JOSE EDUARDO HERNANDEZ MD DATE: 05/11/171928 CC: SEBAS RICHMOND APRN; NO PCP ~ Course & Med Decision Making Course & Med Decision Making Pertinent Labs and Imaging studies reviewed. (See chart for details) Patient is in the ED complaining of left mid back pain radiating to her left upper back that began this morning. Patient states the pain is worse on deep breaths. She states she's had similar pain before when she had pleurisy. Patient denies any coughing or congestion. She is writhing in pain. She is also complaining of poison naeem rash that began on May and would like to be given a steroid shot. CBC with a WBC of 14.0, CMP lipase with no acute findings. Drug screen positive for marijuana use. D-dimer was 0.79. CTA chest was obtained which was negative for any acute findings. Chest x-ray interpreted by Dr. Smith was negative for any acute findings. Patient was given multiple pain medicines in the ED before she got relief of her symptoms. Highly suspect she has pyelonephritis. She was discharged with Cipro. She was instructed to push fluids. Discharged with Medrol Dosepak for her poison naeem rash. She is to follow-up with her PCP next week. Camryn Disclaimer Camryn Disclaimer This electronic medical record was generated, in whole or in part, using a voice recognition dictation system. Departure Departure Impression: Primary Impression: Contact dermatitis due to poison naeem Additional Impression: Pyelonephritis Disposition: HOME, SELF-CARE Condition: STABLE Referrals: NO PCP (PCP) Follow-up with your doctor next week Patient Instructions: Contact Dermatitis, [id number], Pyelonephritis, Adult, [id number] Additional Instructions: You were seen in the ED with a kidney infection. Please complete your antibiotics. You also have poison naeem. Take the prescribed steroids as ordered. Follow-up with your doctor next week or sooner if need be. Come back to the ED symptoms if worsen. Scripts Hydrocodone/Apap 5-325 (NORCO 5-325 TABLET) 1 Each Tablet 1 TAB PO Q4-6HRS Y for PAIN, #10 TAB must fill cipro prior to narco Prov: SEBAS RICHMOND APRN 05/11/17 Ondansetron (ZOFRAN ODT) 4 Mg Tab.rapdis 1 TAB SL Q8HRS, #15 TAB Prov: SEBAS RICHMOND APRN 05/11/17 Ciprofloxacin Hcl (CIPRO) 500 Mg Tablet 1 TAB PO BID, #14 TAB Prov: SEBAS RICHMOND APRN 05/11/17 Problem Qualifiers SEBAS RICHMOND APRN May 11, 2017 17:36
[2017-05-11 17:43] LABS: BILIRUBIN,URINE NEGATIVE (NEG); GLUCOSE,URINE NEGATIVE (NEG); NITRITE,URINE NEGATIVE (NEG); PH,URINE 7.5; PROTEIN,URINE NEGATIVE (NEG-TRACE)
[2017-05-11] MEDS ORDERED: DEXAMETHASONE SOD PHOS 20 MG/5 ML VIAL. IV ONE (17:45)
[2017-05-11] MEDS ORDERED: IV NORMAL SALINE 1000ML BAG 1,000 ML IV ONE (17:45)
[2017-05-11] MEDS ORDERED: MORPHINE SULFATE 10 MG/ML VIAL. IV ONE (17:45)
[2017-05-11 17:58] LABS: BASO # 0.1 x10^3/uL (0.0-0.2); BASO % 1 % (0-3); EOS % 2 % (0-3); HEMATOCRIT 39.6 % (36.0-47.0); HEMOGLOBIN 12.8 g/dL (12.0-15.5); LYMPH # 5.8 x10^3/uL (1.0-4.8); LYMPH % 41 % (24-48); MEAN CORPUSCULAR HEMOGLOBIN 26 pg (25-35); MEAN CORPUSCULAR HGB CONC 32 g/dL (31-37); MEAN CORPUSCULAR VOLUME 81 fL (79-100); MONO % 8 % (0-9); NEUT % 48 % (31-73); PLATELET COUNT 227 x10^3/uL (140-400); RED BLOOD COUNT 4.92 x10^6/uL (3.50-5.40); RED CELL DISTRIBUTION WIDTH 15.9 % (11.5-14.5)
[2017-05-11 18:03] LABS: BACTERIA,URINE FEW /HPF (0-FEW); RBC,URINE 0 /HPF (0-2); SQUAMOUS EPITHELIAL CELL,UR OCC /LPF
[2017-05-11 18:05] LABS: INR 1.1 (0.8-1.1); PROTHROMBIN TIME PATIENT 13.3 SEC (11.7-14.0)
[2017-05-11 18:11] LABS: BARBITURATES NEG (NEG); BENZODIAZEPINES NEG (NEG); CANNABINOIDS POS (NEG); COCAINE NEG (NEG); METHADONE NEG (NEG); OPIATES NEG (NEG); PHENCYCLIDINE NEG (NEG)
[2017-05-11 18:15] LABS: CALCIUM 8.7 mg/dL (8.5-10.1); CREATININE 0.9 mg/dL (0.6-1.0); POTASSIUM 4.1 mmol/L (3.5-5.1)
[2017-05-11 18:29] LABS: CKMB MASS 0.9 ng/mL (0.0-3.6)
[2017-05-11] MEDS ORDERED: FAMOTIDINE 20 MG/2 ML VIAL IVP ONE (18:45)
[2017-05-11] MEDS ORDERED: LIDO:MAALOX:DONNATAL 1:1:1 15 ML SINGLE DOSE SWSW ONE (18:45)
[2017-05-11] MEDS ORDERED: IOHEXOL 300 MG/ML 75 ML VIAL IV ONE (19:00)
[2017-05-11] MEDS ORDERED: ONDANSETRON PF 4 MG/2 ML VIAL. IV ONE (19:15)
[2017-05-11] MEDS ORDERED: fentaNYL PF VIAL 100 MCG/2 ML VIAL IV ONE (19:15)
[2017-05-11] MEDS ORDERED: CONTRAST GIVEN MC PRN (19:15)
[2017-05-11 19:30] VITALS: BP 127/85
--- NOTE | 2017-05-11 19:40 | RAD ---
Indication: Chest pain and back pain as well as elevated d-dimer. Axial imaging through the chest was performed after the administration of intravenous contrast and utilizing the CT angiography protocol. Multiplanar, 3-D and MIP reformations were also performed. One or more of the following individualized dose reduction techniques were utilized for this examination: 1. Automated exposure control 2. Adjustment of the mA and/or kV according to patient size 3. Use of iterative reconstruction technique Evaluation of the pulmonary arterial system is without evidence of thromboembolism. No filling defects are detected. The thoracic aorta is normal caliber. No dissection is seen. No pericardial or pleural fluid is identified. No parenchymal infiltrate, nodule or mass is identified. The upper abdomen is unremarkable. IMPRESSION: No evidence of pulmonary embolus or thoracic aortic dissection. Electronically signed by: Jose Eduardo Hernandez MD (05/11/2017 7:37 PM) [facility]
[2017-05-11] MEDS ORDERED: ONDA4TAB10 SL (20:18)
[2017-05-11] MEDS ORDERED: HYDR-971 PO (20:18)
[2017-05-11] MEDS ORDERED: CIPR500T94 PO (20:18)
--- NOTE | 2017-05-12 06:02 | EKG ---
[facility] [address] [place] [address] Test Date: 2017-05-11 Test Time: 17:41:25 Pat Name: KELLY SANTOS Department: Room: Gender: F Manager Dish: : 1985 Requested By: SEBAS RICHMOND Order Number: [id number] Reading MD: Measurements Intervals [place] Rate: 70 P: 24 AL: 186 QRS: 19 QRSD: 84 T: 20 QT: 376 QTc: 409 Interpretive Statements SINUS RHYTHM QRS(T) CONTOUR ABNORMALITY CONSIDER ANTEROLATERAL MYOCARDIAL DAMAGE POSSIBLY ABNORMAL ECG RI6.01 No previous ECG available for comparison
--- NOTE | 2017-05-12 08:08 | RAD ---
Portable chest, 05/11/2017: History: Back pain Comparison is made to a study from 01/03/2017. The heart size and pulmonary vascularity are normal. No pulmonary infiltrates are seen. There is no evidence of pleural fluid. IMPRESSION: No acute cardiopulmonary abnormality is detected.
== END 2017-05-11 20:31 | disposition home or self-care (01) ==
LOC: ER 16:24
DX: L23.7 Allergic contact dermatitis due to plants, except food (principal); N12 Tubulo-interstitial nephritis, not specified as acute or chronic; F41.9 Anxiety disorder, unspecified; F31.9 Bipolar disorder, unspecified; K58.9 Irritable bowel syndrome, unspecified; F43.10 Post-traumatic stress disorder, unspecified; F12.90 Cannabis use, unspecified, uncomplicated; G12.9 Spinal muscular atrophy, unspecified; Z90.49 Acquired absence of other specified parts of digestive tract; Z98.51 Tubal ligation status; Z88.0 Allergy status to penicillin; Z88.6 Allergy status to analgesic agent; Z87.442 Personal history of urinary calculi; Z91.030 Bee allergy status
CPT/HCPCS: 36415; 71010; 71275; 80048; 80305; 80320; 81001; 81025; 82553; 84484; 85027; 85379; 85610; 85730; 93005; 96361; 96374; 96375; 99285; J1100; J2270; J2405; J3010; J7030; Q9967; S0028; G0480; G0481

== ENCOUNTER 2017-12-09 14:56 | Emergency (ER) | payer OTHER ==
[2017-12-09 15:36] LABS: URINE HCG POC HCG NEGATIVE (Negative)
[2017-12-09] MEDS: HYDROcodone/APAP 5/325MG 1 TAB TABLET PO ×2 (15:44)
[2017-12-09 15:45] LABS: BILIRUBIN,URINE NEGATIVE (NEG); CLARITY,URINE CLEAR; COLOR,URINE YELLOW; GLUCOSE,URINE NEGATIVE (NEG); NITRITE,URINE NEGATIVE (NEG); PROTEIN,URINE NEGATIVE (NEG-TRACE); UROBILINOGEN,URINE 0.2 mg/dL (0.2 mg/dL)
[2017-12-09 15:49] LABS: ADD MAN DIFF? NO
[2017-12-09 15:53] LABS: BASO # 0.1 x10^3/uL (0.0-0.2); BASO % 1 % (0-3); EOS # 0.2 x10^3/uL (0.0-0.7); EOS % 2 % (0-3); HEMATOCRIT 36.7 % (36.0-47.0); HEMOGLOBIN 11.9 g/dL (12.0-15.5); LYMPH # 3.9 x10^3/uL (1.0-4.8); LYMPH % 38 % (24-48); MEAN CORPUSCULAR HEMOGLOBIN 26 pg (25-35); MEAN CORPUSCULAR HGB CONC 33 g/dL (31-37); MEAN CORPUSCULAR VOLUME 79 fL (79-100); MONO # 0.7 x10^3/uL (0.0-1.1); MONO % 7 % (0-9); NEUT # 5.4 x10^3uL (1.8-7.7); NEUT % 53 % (31-73); PLATELET COUNT 238 x10^3/uL (140-400); RED BLOOD COUNT 4.64 x10^6/uL (3.50-5.40); RED CELL DISTRIBUTION WIDTH 16.7 % (11.5-14.5); WHITE BLOOD COUNT 10.1 x10^3/uL (4.0-11.0)
[2017-12-09 15:54] LABS: BACTERIA,URINE 0 /HPF (0-FEW); HYALINE CASTS, URINE FEW /HPF; RBC,URINE >40 /HPF (0-2); SQUAMOUS EPITHELIAL CELL,UR FEW /LPF; WBC,URINE OCC /HPF (0-4)
[2017-12-12 01:12] LABS: CHLAMYDIA PROBE Negative (Negative); GC PROBE Negative (Negative)
== END 2017-12-09 16:41 | disposition home or self-care (01) ==
LOC: ER 14:56
DX: N83.201 Unspecified ovarian cyst, right side (principal); N93.8 Other specified abnormal uterine and vaginal bleeding; F41.9 Anxiety disorder, unspecified; F31.9 Bipolar disorder, unspecified; K58.9 Irritable bowel syndrome, unspecified; F43.10 Post-traumatic stress disorder, unspecified; F12.10 Cannabis abuse, uncomplicated; Z90.49 Acquired absence of other specified parts of digestive tract; Z88.0 Allergy status to penicillin; Z98.51 Tubal ligation status; Z88.6 Allergy status to analgesic agent; Z91.030 Bee allergy status
CPT/HCPCS: 76830; 76856; 81001; 81025; 85025; 87491; 87591; 99285-25; Q0111

== ENCOUNTER 2018-01-30 17:13 | Emergency (ER) | payer OTHER | END 2018-01-30 19:03 | disposition home or self-care (01) | LOC: ER 17:13 | DX: J06.9 Acute upper respiratory infection, unspecified (principal); K58.9 Irritable bowel syndrome, unspecified; F43.10 Post-traumatic stress disorder, unspecified; F12.10 Cannabis abuse, uncomplicated; Z88.6 Allergy status to analgesic agent; Z88.0 Allergy status to penicillin; Z91.030 Bee allergy status | CPT/HCPCS: 99281 ==

== ENCOUNTER 2018-03-06 15:40 | Emergency (ER) | payer OTHER ==
[2018-03-06] MEDS: KETOROLAC 60 MG/2 ML INJ. IM (16:16)
[2018-03-06] MEDS: FAMOTIDINE 20 MG TABLET. PO (16:16)
== END 2018-03-06 16:35 | disposition home or self-care (01) ==
LOC: ER 15:40
DX: G89.29 Other chronic pain (principal); M25.552 Pain in left hip; K58.9 Irritable bowel syndrome, unspecified; F43.10 Post-traumatic stress disorder, unspecified; Z98.51 Tubal ligation status; F41.9 Anxiety disorder, unspecified; Z90.49 Acquired absence of other specified parts of digestive tract; F31.9 Bipolar disorder, unspecified; F12.10 Cannabis abuse, uncomplicated; Z88.0 Allergy status to penicillin
CPT/HCPCS: 96372; 99283-25; J1885

== ENCOUNTER → 2018-03-13 | Outpatient (CLI) | payer OTHER ==
[2018-03-13] MEDS: IOHEXOL 300 MG/ML 10ML VIAL. IJ (14:14)
[2018-03-13] MEDS: methylPREDNISolone ACETATE 80 MG/ML VIAL. IM (14:14)
[2018-03-13] MEDS: LIDOCAINE WITH 8.4% SOD BICARB 3 ML DISP.SYRIN. INJ (14:15)
[2018-03-13] MEDS: BUPIVACAINE 0.5% 50 ML VIAL. INJ (14:15)
== END | disposition home or self-care (01) ==
LOC: RAD 13:02
DX: M25.552 Pain in left hip (principal); J45.909 Unspecified asthma, uncomplicated; K21.9 Gastro-esophageal reflux disease without esophagitis; G51.0 Bell's palsy; F41.9 Anxiety disorder, unspecified; F31.9 Bipolar disorder, unspecified; F43.10 Post-traumatic stress disorder, unspecified; Z87.442 Personal history of urinary calculi; Z87.440 Personal history of urinary (tract) infections; Z88.0 Allergy status to penicillin; Z91.030 Bee allergy status; Z88.6 Allergy status to analgesic agent; Z98.51 Tubal ligation status; Z98.890 Other specified postprocedural states; D64.9 Anemia, unspecified; Z82.49 Family history of ischemic heart disease and other diseases of the circulatory system; Z83.49 Family history of other endocrine, nutritional and metabolic diseases
CPT/HCPCS: 20605; 20610; 77002; J1040; J3490; Q9967

== ENCOUNTER → 2018-07-04 | Day surgery (SDC) | payer OTHER ==
[~2018-07-04] MED LIST changes: +CIPR500T94 PO; +CLON0.5T11 PO; -CLON0.5T3 PO; +HYDR-971 PO; +IV RINGERS,LACTATED 1000ML 1,000 ML IV SCH; +LIDOCAINE 2% 100 MG/5 ML SYRINGE. ONE; +MIDAZOLAM HCL/PF 2 MG/2 ML VIAL. ONE; +ONDA4TAB10 SL; +PROPOFOL 20 ML IV ONE; +fentaNYL PF VIAL 100 MCG/2 ML VIAL ONE
--- NOTE | 2018-07-04 13:45 | RAD ---
MRI Lumbar Spine without contrast History: Low back pain, worsening left leg radiculopathy Technique: Multiplanar, multi sequential noncontrast MR imaging was performed of the lumbar spine. Contrast: None Comparison: None Findings: Lumbar vertebral body stature is overall preserved. There is minimal posterior subluxation L5 relative S1. There is more advanced degenerative disc disease L5-S1. There is L4 limbus vertebra. Conus terminates at L1-L2. There is no significant marrow edema. L3-L4: There is mild prominence of posterior epidural fat, facet degenerative change, and buckling of the ligamentum flavum. Neural foramina and spinal canal are adequate. L4-L5: There is mild facet degenerative change and buckling of the ligamentum flavum. Neural foramina and spinal canal are adequate. L5-S1: There is a posterior mostly central protrusion mild indentation upon the ventral thecal sac, no significant impingement of the descending S1 nerve roots. Spinal canal is adequate. There is mild facet degenerative change. There is moderate narrowing of left neural foramen with contact dorsal surface exiting left L5 nerve root, minimal narrowing on the right. Impression: 1. There is no significant lumbar spinal stenosis. There is moderate narrowing of the left L5-S1 neural foramen greater from posteriorly by facet. There is more advanced degenerative disc disease at L5-S1. Electronically signed by: Brent Lee MD (07/04/2018 1:42 PM) [facility]
[2018-07-04 14:00] VITALS: BP 114/74
== END | disposition home or self-care (01) ==
LOC: SURG 12:04
PROVIDERS: ATTEND Anesthesiology
DX: M51.16 Intervertebral disc disorders with radiculopathy, lumbar region (principal); Z88.0 Allergy status to penicillin; Z88.6 Allergy status to analgesic agent; Z91.030 Bee allergy status
CPT/HCPCS: 72148; J2250; J2704; J3010

== ENCOUNTER 2018-07-13 12:24 | Emergency (ER) | payer OTHER ==
[~2018-07-13] VITALS: Ht 172.7 cm; Wt 97.3 kg
[~2018-07-13 12:24] MED LIST changes: -IV RINGERS,LACTATED 1000ML 1,000 ML IV SCH; -LIDOCAINE 2% 100 MG/5 ML SYRINGE. ONE; -MIDAZOLAM HCL/PF 2 MG/2 ML VIAL. ONE; -PROPOFOL 20 ML IV ONE; -fentaNYL PF VIAL 100 MCG/2 ML VIAL ONE
[2018-07-13] MEDS ORDERED: fentaNYL PF VIAL 100 MCG/2 ML VIAL IV ONE (13:45)
[2018-07-13 13:57] LABS: BASO % 0 % (0-3); EOS # 0.2 x10^3/uL (0.0-0.7); EOS % 2 % (0-3); HEMATOCRIT 36.5 % (36.0-47.0); HEMOGLOBIN 11.7 g/dL (12.0-15.5); LYMPH % 29 % (24-48); MEAN CORPUSCULAR HEMOGLOBIN 24 pg (25-35); MEAN CORPUSCULAR HGB CONC 32 g/dL (31-37); MEAN CORPUSCULAR VOLUME 74 fL (79-100); MONO # 0.6 x10^3/uL (0.0-1.1); MONO % 6 % (0-9); NEUT # 6.6 x10^3uL (1.8-7.7); NEUT % 64 % (31-73); PLATELET COUNT 241 x10^3/uL (140-400); RED BLOOD COUNT 4.95 x10^6/uL (3.50-5.40); RED CELL DISTRIBUTION WIDTH 17.6 % (11.5-14.5); WHITE BLOOD COUNT 10.4 x10^3/uL (4.0-11.0)
[2018-07-13 13:57] LABS: BILIRUBIN,URINE NEGATIVE (NEG); CLARITY,URINE CLEAR; COLOR,URINE YELLOW; NITRITE,URINE NEGATIVE (NEG); PROTEIN,URINE NEGATIVE (NEG-TRACE); UROBILINOGEN,URINE 0.2 mg/dL (0.2 mg/dL)
[2018-07-13] MEDS ORDERED: ONDANSETRON PF 4 MG/2 ML VIAL. IV ONE (14:00)
[2018-07-13 14:02] LABS: CALCIUM 8.9 mg/dL (8.5-10.1); CREATININE 0.8 mg/dL (0.6-1.0); GFR 83.1; POTASSIUM 3.7 mmol/L (3.5-5.1)
[2018-07-13 14:08] LABS: BACTERIA,URINE 0 /HPF (0-FEW); SQUAMOUS EPITHELIAL CELL,UR FEW /LPF; WBC,URINE RARE /HPF (0-4)
--- NOTE | 2018-07-13 14:15 | PHYS DOC ---
Past Medical History Past Medical History: Anxiety, Bipolar, Depression, Kidney Stone, Ovarian Cyst Additional Past Medical Histor: CHRONIC BACK PAIN Past Surgical History: Tonsillectomy, Tubal ligation Additional Past Surgical Histo: "duodenojejunostomy" Alcohol Use: Rarely Drug Use: Marijuana Adult General Chief Complaint Chief Complaint: VAGINAL BLEEDING HPI HPI Patient is a 33 year old female who presents with a history of heavy vaginal bleeding and has been off of her hormone replacement x 4 months to control the heavy bleeding and awoke this morning with abdominal cramping and heavy vaginal bleeding. Review of Systems Review of Systems Constitutional: Denies fever or chills [] Eyes: Denies change in visual acuity, redness, or eye pain [] HENT: Denies nasal congestion or sore throat [] Respiratory: Denies cough or shortness of breath [] Cardiovascular: No additional information not addressed in HPI [] GI: Abdominal cramping, Denies nausea, vomiting, bloody stools or diarrhea [] : Vaginal bleeding. Denies dysuria or hematuria [] Musculoskeletal: Denies back pain or joint pain [] Integument: Denies rash or skin lesions [] Neurologic: Denies headache, focal weakness or sensory changes [] Endocrine: Denies polyuria or polydipsia [] All other systems were reviewed and found to be within normal limits, except as documented in this note. Current Medications Current Medications Current Medications Medications (Trade) Dose Ordered Sig/Salvador Start Time Stop Time Status Last Admin Dose Admin Fentanyl Citrate (Fentanyl 2ml Vial) 50 mcg 1X ONCE 07/13/18 13:45 07/13/18 13:51 DC 07/13/18 13:50 50 MCG Ondansetron HCl (Zofran) 4 mg 1X ONCE 07/13/18 14:00 07/13/18 14:10 DC 07/13/18 14:19 4 MG Allergies Allergies Allergies Coded Allergies Type Severity Reaction Last Updated Verified aspirin Allergy Intermediate 06/17/16 Yes venom-honey bee Allergy Intermediate SWELLING 06/17/16 Yes Penicillins Adverse Reaction Intermediate 06/17/16 Yes Physical Exam Physical Exam Constitutional: Well developed, well nourished, no acute distress, non-toxic appearance. [] HENT: Normocephalic, atraumatic, bilateral external ears normal, oropharynx moist, no oral exudates, nose normal. [] Eyes: PERRLA, EOMI, conjunctiva normal, no discharge. [] Neck: Normal range of motion, no tenderness, supple, no stridor. [] Cardiovascular:Heart rate regular rhythm, no murmur [] Lungs & Thorax: Bilateral breath sounds clear to auscultation [] Abdomen: Bowel sounds normal, soft, lower abdominal tenderness, no masses, no pulsatile masses. Vaginal bleeding. [] Skin: Warm, dry, no erythema, no rash. [] Back: No tenderness, no CVA tenderness. [] Extremities: No tenderness, no cyanosis, no clubbing, ROM intact, no edema. [] Neurologic: Alert and oriented X 3, normal motor function, normal sensory function, no focal deficits noted. [] Psychologic: Affect normal, judgement normal, mood normal. [] Current Patient Data Vital Signs Vital Signs Date Time Temp Pulse Resp B/P (MAP) Pulse Ox O2 Delivery O2 Flow Rate FiO2 07/13/18 14:52 16 99 Room Air 07/13/18 14:30 67 134/81 (98) 07/13/18 13:02 98.0 98.0 Lab Values Laboratory Tests Test 07/13/18 12:40 07/13/18 12:55 07/13/18 13:02 Urine Collection Type Void Urine Color Yellow Urine Clarity Clear Urine pH 5.0 Urine Specific [place] D 1.020 Urine Protein Negative mg/dL (NEG-TRACE) Urine Glucose (UA) Negative mg/dL (NEG) Urine Ketones (Stick) Negative mg/dL (NEG) Urine Blood Large (NEG) Urine Nitrite Negative (NEG) Urine Bilirubin Negative (NEG) Urine Urobilinogen Dipstick 0.2 mg/dL (0.2 mg/dL) Urine Leukocyte Esterase Negative (NEG) Urine RBC 6-10 /HPF (0-2) Urine WBC Rare /HPF (0-4) Urine Squamous Epithelial Cells Few /LPF Urine Bacteria 0 /HPF (0-FEW) POC Urine HCG, Qualitative Hcg negative (Negative) White Blood Count 10.4 x10^3/uL (4.0-11.0) Red Blood Count 4.95 x10^6/uL (3.50-5.40) Hemoglobin 11.7 g/dL (12.0-15.5) L Hematocrit 36.5 % (36.0-47.0) Mean Corpuscular Volume 74 fL (79-100) L Mean Corpuscular Hemoglobin 24 pg (25-35) L Mean Corpuscular Hemoglobin Concent 32 g/dL (31-37) Red Cell Distribution Width 17.6 % (11.5-14.5) H Platelet Count 241 x10^3/uL (140-400) Neutrophils (%) (Auto) 64 % (31-73) Lymphocytes (%) (Auto) 29 % (24-48) Monocytes (%) (Auto) 6 % (0-9) Eosinophils (%) (Auto) 2 % (0-3) Basophils (%) (Auto) 0 % (0-3) Neutrophils # (Auto) 6.6 x10^3uL (1.8-7.7) Lymphocytes # (Auto) 3.0 x10^3/uL (1.0-4.8) Monocytes # (Auto) 0.6 x10^3/uL (0.0-1.1) Eosinophils # (Auto) 0.2 x10^3/uL (0.0-0.7) Basophils # (Auto) 0.0 x10^3/uL (0.0-0.2) Sodium Level 141 mmol/L (136-145) Potassium Level 3.7 mmol/L (3.5-5.1) Chloride Level 105 mmol/L (98-107) Carbon Dioxide Level 28 mmol/L (21-32) Anion Gap 8 (6-14) Blood Urea Nitrogen 9 mg/dL (7-20) Creatinine 0.8 mg/dL (0.6-1.0) Estimated GFR (Cockcroft-Gault) 83.1 Glucose Level 89 mg/dL (70-99) Calcium Level 8.9 mg/dL (8.5-10.1) Laboratory Tests 07/13/18 13:02 Laboratory Tests 07/13/18 13:02 EKG EKG [] Radiology/Procedures Radiology/Procedures Pelvic Ultrasound[] Impressions: [facility] [address] [place] [address] IMAGING REPORT Signed PATIENT: KELLY SANTOS ACCOUNT: [id number] : 1985 LOCATION: ER AGE: 33 SEX: F EXAM STATUS: REG ER ORD. PHYSICIAN: TATA GARCIA APRN REASON: PAIN, HEAVY VAGINAL BLEEDING PROCEDURE: PELVIS W/TV Pelvic ultrasound Clinical Indication: Pain. Heavy vaginal bleeding.. . TRANSABDOMINAL SCAN Suboptimal visualization of uterus. Ovaries poorly seen. TRANSVAGINAL SCAN Uterus: * Size (in centimeters): 9.7 length by 5.0 AP by 6.3 by * Appearance: Retroflexed. Heterogeneous appearance without a dominant mass. * Endometrium: 11 mm mm endometrial stripe thickness. Uniform appearance. Right ovary: * Size: 3.9 cm long axis. * Blood flow: Intact * Appearance: No significant mass. Left ovary: * Size: 2.9 cm long axis. * Blood flow: Intact * Appearance: Small follicles, with a larger 14 mm lesion which demonstrates a complex morphology with some internal vascularity and septation. Free fluid: None visualized IMPRESSION: 1. Complex 14 mm left ovarian lesion, may represent a complex cyst but other etiology not excludable. Recommend short-term follow-up pelvic ultrasound, in about 2 weeks. 2. Retroflexed uterus with a heterogeneous appearance no dominant lesion. Electronically signed by: Saul Lyman MD (07/13/2018 3:12 PM) [facility] Course & Med Decision Making Course & Med Decision Making Patient is a 33 year old female who presents with a history of heavy vaginal bleeding and has been off of her hormone replacement x 4 months to control the heavy bleeding and awoke this morning with abdominal cramping and heavy vaginal bleeding. Patient states that she has gone through 3 pads in 3 hours but states the bleeding has now slowed down. Patient denies dizziness, syncopal episodes, numbness or tingling, chest or soa. Patient denies nausea or vomiting or fever. Patient is afebrile. Skin is pink, warm and dry. Patient is neurologically intact. Lungs are clear to auscultation. Abdomen is soft, without masses and lower abdominal tenderness with palpation. Patient states that she has had a tubal and is sexually active. Patient denies any abnormal vaginal discharge or vaginal odor. Patient states she called her technical communication teacher Dr Crouch who is currently out of state. Patient states she is allergic to Aspirin and PCN. Patient states she has history of Ovarian cyst, 5mm kidney stone in her bladder , lumbar herniated disc, bipolar, depression, and anxiety. Patients urine is negative for infection. Patients Ultrasound show 1. Complex 14 mm left ovarian lesion, may represent a complex cyst but other etiology not excludable. Recommend short-term follow-up pelvic ultrasound, in about 2 weeks. 2. Retroflexed uterus with a heterogeneous appearance no dominant lesion. Patient is told that if she is in excruciating pain that she must come directly to the emergency because Ultrasounds do not always rule out ovarian torsion. Patient is discharged home in stable condition. [] Dragon Disclaimer Dragon Disclaimer This electronic medical record was generated, in whole or in part, using a voice recognition dictation system. Departure Departure Impression: Primary Impression: Dysfunctional uterine bleeding Disposition: 01 HOME, SELF-CARE Condition: STABLE Referrals: CORNELIUS CARLOS APRN (PCP) GWEN FLORENCE MD Patient Instructions: Uterine Bleeding, Dysfunctional Additional Instructions: Follow up with primary care or your technical communication teacher TATA GARCIA APRN Jul 13, 2018 14:15
--- NOTE | 2018-07-13 15:15 | RAD ---
Pelvic ultrasound Clinical Indication: Pain. Heavy vaginal bleeding.. . TRANSABDOMINAL SCAN Suboptimal visualization of uterus. Ovaries poorly seen. TRANSVAGINAL SCAN Uterus: * Size (in centimeters): 9.7 length by 5.0 AP by 6.3 by * Appearance: Retroflexed. Heterogeneous appearance without a dominant mass. * Endometrium: 11 mm mm endometrial stripe thickness. Uniform appearance. Right ovary: * Size: 3.9 cm long axis. * Blood flow: Intact * Appearance: No significant mass. Left ovary: * Size: 2.9 cm long axis. * Blood flow: Intact * Appearance: Small follicles, with a larger 14 mm lesion which demonstrates a complex morphology with some internal vascularity and septation. Free fluid: None visualized IMPRESSION: 1. Complex 14 mm left ovarian lesion, may represent a complex cyst but other etiology not excludable. Recommend short-term follow-up pelvic ultrasound, in about 2 weeks. 2. Retroflexed uterus with a heterogeneous appearance no dominant lesion. Electronically signed by: Saul Lyman MD (07/13/2018 3:12 PM) [id number]
[2018-07-13 16:30] VITALS: BP 159/93
== END 2018-07-13 16:25 | disposition home or self-care (01) ==
LOC: ER 12:24
DX: N93.8 Other specified abnormal uterine and vaginal bleeding (principal); G89.29 Other chronic pain; Z87.442 Personal history of urinary calculi; Z98.51 Tubal ligation status; Z88.6 Allergy status to analgesic agent; Z88.0 Allergy status to penicillin; Z91.030 Bee allergy status
CPT/HCPCS: 36415; 76830; 76856; 80048; 81001; 81025; 85025; 96374; 96375; 99285; J2405; J3010

== ENCOUNTER → 2018-10-03 | Outpatient (CLI) | payer OTHER ==
[~2018-10-03] MED LIST changes: +GABA-585 PO; +HYDR-3164 PO; -HYDR-971 PO; +IBUP-1060 PO
--- NOTE | 2018-10-04 00:26 | PAIN ---
DATE OF SERVICE: 10/03/2018 INITIAL CONSULTATION FOR PAIN CLINIC CHIEF COMPLAINT: Low back, bilateral lower extremity pain, left greater than right. HISTORY OF PRESENT ILLNESS: This is a 33-year-old female who presents with history of pain for many years and worse over the past 1 year and pain in the low back, bilateral lower extremities, again worse on the left than the right side, mostly in the posterior gluteus, posterior thighs, posterior calves, anterior thigh and calf on the left as well, worse with walking, standing, changing positions, standing from a sitting position, better with sitting or lying down, but awakens her from sleep at least 3 times at night. The patient reports it affects her bowel and bladder control. She has some difficulty starting urination, but no loss of continence. The patient reports it does affect her ability to walk as well. States that she uses cane or walker, but not most times. The patient reports she does fatigue easily, especially with the left leg she has stumbled and fallen from the pain and electrical shock sensation in her legs as well as fatigability, which she has significantly in the left leg greater than the right, but both legs with walking even more than about 5 minutes. The patient reports the pain across the low back is sharp, stabbing, throbbing also in the legs and shooting, intermittent in intensity, but always present, tingling, numbness, radiation and burning sensation as well as electrical shocking sensation. The patient rates her disability rate from 0-10, 10 being the worst, 6 family and home responsibilities and social activity, 8 with recreation, 5 with occupation, sexual behavior, self-care and life support activities. The patient did have MRI scan of lumbar spine showing posteriorly, mostly central protrusion at L5-S1, mild indentation upon the ventral thecal sac. No significant impingement of the descending S1 nerve roots. The spinal canal is adequate with mild facet degenerative change, moderate narrowing of left neural foramen with contact of the dorsal surface of the exiting left L5 nerve root and minimal narrowing on the right. The patient reports no loss of motor function and significant fatigability, especially in the left lower extremity. PAST MEDICAL HISTORY: Significant for arthritis, dizziness, anemia, difficulty urinating. PREVIOUS SURGERY: Include tubal ligation in 2016, duodenal ulcer surgery in 2012, tonsillectomy as a child and cholecystectomy in 2012. CURRENT MEDICATIONS: Include clonazepam, Protonix, paroxetine, Lamictal, baclofen, Wellbutrin, Paxil, Atarax, tramadol and ibuprofen. ALLERGIES: ASPIRIN and PENICILLIN. FAMILY HISTORY: Significant for scoliosis, hypertension, COPD and cancers. SOCIAL HISTORY: The patient does not drink alcohol, does not smoke, does not use illegal, illicit or recreational drugs. He is , lives with her spouse and children locally in [place], [place]. 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 REVIEW OF SYSTEMS: The patient's review of systems is positive for those items mentioned in history of present illness. All systems reviewed and otherwise negative. It is complete, full and well documented on the patient's chart. PHYSICAL EXAMINATION: VITAL SIGNS: Today, the patient's blood pressure is 142/110, pulse 74, respirations 18, temperature 98.4 degrees Fahrenheit, height is 5 feet 8 inches, weight is 216 pounds. GENERAL: The patient is awake, alert, oriented, appropriate, very pleasant demeanor. HEENT: Shows normocephalic, atraumatic. Extraocular movements intact and symmetrical. Oral cavity, mucous membranes are moist and pink. Dentition is intact. NECK: Shows anterior throat supple without palpable lymphadenopathy noted. Swallow reflex is symmetrical. CHEST: Shows normal with inspection. Breath sounds clear to auscultation bilaterally. HEART: Shows S1, S2 clear. No murmurs auscultated. ABDOMEN: Soft, nontender, nondistended. No palpable organomegaly is noted. No rebound or guarding demonstrated. BACK: Shows spine grossly in the midline. Normal appearing thoracic kyphosis and lumbar lordotic curvature. Lumbar paraspinous muscle shows symmetrical on inspection, on palpation shows some moderate tenderness in the lumbar distribution bilaterally with even moderate palpation. The patient's back shows good rotational motion both laterally greater than 10 degrees right and left as well as extension greater than 10 degrees, forward flexion 45 degrees without significant pain reported. EXTREMITIES: The patient's lower extremities show deep tendon reflexes at 2+ in the patellar, 1+ tendo calcaneus tendons. Motor exam is approximately 4 on a scale of 5, but equal and symmetrical dorsiflexion, extension, quadriceps and hamstring flexion bilaterally. Peripheral pulses are 1+ posterior tibia. No peripheral edema is noted. No clubbing or cyanosis. Lower extremities are warm and dry to touch, equal in color and appearance. Straight leg raising noted to be negative for reproduction of radicular symptoms bilaterally. Gaenslen's and Mauricio's maneuvers are negative for pain bilaterally as well. The patient is able to stand, has difficulty trying to stand on her toes as she loses balance, especially with all of her weight on her left leg. She is walking with a slight shuffling gait, appears to favor the left leg, but not using any assistive devices such as canes or walkers to ambulate. SKIN: Warm, dry, good turgor. No edema, sores, rashes or bruising. IMPRESSION: 1. This is a 33-year-old female with a long history of low back and bilateral lower extremity pain, again worse on the left than the right in radicular fashion. 2. MRI scan of lumbar spine as noted. 3. Arthritis. PLAN: Options were discussed with the patient including conservative medical management, physical therapy, interventional techniques. She has had multiple physical therapies over the years, is doing exercises as well and has done some pool therapy in the past also. She would like to pursue interventional techniques. We would like to speak with her neurosurgeon; however, she has an appointment later today to speak with him and would like to see his opinion for going further. She is somewhat frustrated and the pain has been present for so long without significant long-term improvement over the years. We will wait for neurosurgical evaluation later today and have the patient return in several days, if necessary within the week for lumbar epidural steroid injection if no immediate surgery is indicated or recommended. The patient will return to clinic later this week and we will discuss plans for lumbar epidural steroid injection if indicated at that time. KOSTAS SMITH MD DR: YEIMI/valdo JOB#: [id number] / [id number] CORNELIUS Mckenzie APRN
== END | disposition home or self-care (01) ==
LOC: PNCL 08:41
PROVIDERS: ATTEND Anesthesiology
DX: M79.661 Pain in right lower leg (principal); M54.5 Low back pain; M79.662 Pain in left lower leg; M19.90 Unspecified osteoarthritis, unspecified site; D64.9 Anemia, unspecified; Z82.49 Family history of ischemic heart disease and other diseases of the circulatory system; Z80.8 Family history of malignant neoplasm of other organs or systems; Z82.5 Family history of asthma and other chronic lower respiratory diseases; Z88.8 Allergy status to other drugs, medicaments and biological substances; Z88.0 Allergy status to penicillin
CPT/HCPCS: 99214

== ENCOUNTER → 2018-10-05 | Outpatient (CLI) | payer OTHER ==
[~2018-10-05] MED LIST changes: +IOHEXOL 180 MG/ML 10 ML VIAL. ONE; +methylPREDNISolone ACETATE 40 MG/ML VIAL. ONE; +methylPREDNISolone ACETATE 80 MG/ML VIAL. ONE
--- NOTE | 2018-10-05 22:34 | PAIN ---
DATE OF SERVICE: 10/05/2018 PROGRESS NOTE FOR PAIN CLINIC DIAGNOSES: Lumbar radiculopathy with lumbar degenerative disk disease. HISTORY OF PRESENT ILLNESS: The patient is a 33-year-old female who returns for followup status post initial evaluation and returns after a neurosurgical evaluation for lumbar epidural steroid injections today. The patient reports still significant pain in the low back and left lower extremity, mostly in the posterior gluteus, posterior thigh and posterior calf as it was previously as well as across the low back. Pain is described as sharp, dull, tight, shooting, on and off in intensity with radiating pain in the left leg as well. The patient reports it is a 7 on a scale of 10 at its worst, 5 on average and a 3 at its least and is a 5 today. The patient reports no new motor or sensory deficits, no new bowel or bladder incontinence or other complaints. PHYSICAL EXAMINATION: VITAL SIGNS: The patient's blood pressure is 135/55, pulse is 50, respirations 18, temperature is 98.5 degrees Fahrenheit, height is 5 feet 8 inches and weight is 212 pounds. GENERAL: The patient is awake, alert, oriented, appropriate, very pleasant demeanor. HEENT: Head shows normocephalic and atraumatic. Extraocular movements are intact and symmetrical. Oral cavity: Mucous membranes are moist and pink. Dentition is intact. NECK: Shows anterior throat is supple without palpable lymphadenopathy noted. Swallow reflex is symmetrical. CHEST: Shows normal with inspection. Breath sounds are clear to auscultation bilaterally. HEART: Shows S1 and S2 clear. No murmurs are auscultated. ABDOMEN: Soft, nontender and nondistended. No palpable organomegaly is noted. No rebound or guarding demonstrated. BACK: Shows spine grossly in the midline. Normal appearing thoracic kyphosis and lumbar lordotic curvature is slightly flattened. Lumbar paraspinous muscle shows symmetrical on inspection. On palpation shows some moderate tenderness, but only diffusely bilaterally in the lumbar distribution, middle and lower of the paraspinous muscles, but without radiation. The patient has good rotational motion both laterally as well as extension and flexion. EXTREMITIES: Lower extremities show deep tendon reflexes 2+ in the patellar, 1+ tendo calcaneus tendons. Motor exam is approximately 4 on a scale of 5, but equal and symmetrical bilaterally. Peripheral pulses are 1+ posterior tibia. No peripheral edema is noted bilaterally. Options were discussed with the patient. The patient's old chart was reviewed as was her current medication regimen updated. Current review of systems updated today as well. We will proceed with a lumbar epidural steroid injection today with fluoroscopic guidance. Risks were again discussed including, but not limited to bleeding, infection, possibility of epidural hematoma, subsequent neurologic compromise, dural punctures, headaches, spinal cord and/or nerve damage, side effects of steroid medication and poor results regarding pain control. The patient understands and wished to proceed. The patient will return to the clinic in approximately 2 weeks for followup, was counseled as to return appointment, activity level and side effects to be aware of. DIAGNOSIS: Lumbar radiculopathy with lumbar degenerative disk disease. PROCEDURE: Lumbar epidural steroid injection, translaminar approach at L5-S1 level using C-arm fluoroscopic guidance under sterile prep and drape using local anesthetic. MEDICATION INJECTED: A total of 120 mg Depo-Medrol plus 10 mL of preservative free normal saline with 2 mL of Isovue for contrast. CONDITION AT DISCHARGE: Stable. The patient tolerated the procedure well and had no complications. KOSTAS SMITH MD DR: YEIMI/valdo JOB#: [id number] / [id number]
== END | disposition home or self-care (01) ==
LOC: PNCL 12:10
PROVIDERS: ATTEND Anesthesiology
DX: M51.16 Intervertebral disc disorders with radiculopathy, lumbar region (principal); Z88.0 Allergy status to penicillin; Z88.6 Allergy status to analgesic agent; Z91.030 Bee allergy status; Z79.899 Other long term (current) drug therapy
CPT/HCPCS: 62323; J1030; J1040; Q9965

== ENCOUNTER → 2018-10-31 | Outpatient (CLI) | payer OTHER ==
[~2018-10-31] MED LIST changes: +LAMO250T2 PO
--- NOTE | 2018-10-31 19:47 | PAIN ---
DATE OF SERVICE: 10/31/2018 DIAGNOSIS: Lumbar radiculopathy with lumbar degenerative disk disease. HISTORY OF PRESENT ILLNESS: The patient is a 33-year-old female who returns for followup status post lumbar epidural steroid injection x 1. The patient reports about 40% improvement with the first injection for about the first 3 weeks. The pain is returning now in the low back, mainly into the left lower extremity, posterior gluteus, posterior thigh, lateral thigh and posterior calf into the foot. The patient reports it is aching, sharp, dull, tight, shooting, tingling, radiating, becoming more noticeable with activity. The patient reports the first few weeks was doing much better with increased activity, walking and doing work activities and household activities, still waking her from sleep about every 5-8 hours. The patient reports it is 8 on a scale of 10 at its worst, 5 on average and 3 at its least and is a 5 today. The patient reports no new motor or sensory deficits, no new bowel or bladder incontinence. PHYSICAL EXAMINATION: VITAL SIGNS: The patient's blood pressure is 149/106, pulse 85, respirations 20, temperature is 98.2 degrees Fahrenheit, height is 5 feet 8 inches, weight is 214 pounds. GENERAL: The patient is awake, alert, oriented, appropriate, very pleasant demeanor. HEENT: Head shows normocephalic, atraumatic. Extraocular movements are intact and symmetrical. Oral cavity: Mucous membranes moist and pink. Dentition intact. NECK: Shows anterior throat supple without palpable lymphadenopathy noted. Swallow reflex symmetrical. CHEST: Shows normal on inspection. Breath sounds clear to auscultation bilaterally. HEART: Shows S1, S2 clear. No murmurs auscultated. ABDOMEN: Soft, nontender, nondistended. No palpable organomegaly is noted. There is no rebound or guarding demonstrated. BACK: Shows spine grossly in the midline. Normal appearing thoracic kyphosis and lumbar lordotic curvature. Lumbar paraspinous muscle shows symmetrical on inspection and on palpation shows some moderate tenderness diffusely bilaterally, but only diffusely without radiation. EXTREMITIES: Lower extremities show deep tendon reflexes at 2+ in the patellar, 1+ tendo-calcaneus tendons. Motor exam is approximately 4 on a scale of 5, but equal, symmetrical with dorsiflexion, extension, quadriceps and hamstring flexion. Peripheral pulses are 1+ posterior tibia. No peripheral edema is noted bilaterally. Options were discussed with the patient. The patient's old chart was reviewed as well as her current medication regimen updated. Current review of systems updated today as well. We will proceed with a second lumbar epidural steroid injection today with fluoroscopic guidance. Risks were again discussed including, but not limited to bleeding, infection, possibility of epidural hematoma, subsequent neurological compromise, dural puncture, headaches, spinal cord and/or nerve damage, side effects of steroid medication and poor results regarding pain control. The patient understands and wished to proceed. The patient will return to clinic in approximately 2 weeks for followup, was counseled on return appointment, activity level and side effects to be aware of. DIAGNOSIS: Lumbar radiculopathy with lumbar degenerative disk disease. PROCEDURES: Lumbar epidural steroid injection, translaminar approach L5-S1 level using C-arm fluoroscopic guidance under sterile prep and drape using local anesthetic. MEDICATION INJECTED: A total of 120 mg Depo-Medrol plus 10 mL of preservative-free normal saline and 2 mL of Isovue for contrast. CONDITION AT DISCHARGE: Stable. The patient tolerated the procedure well, had no complications. KOSTAS SMITH MD DR: YEIMI/valdo JOB#: [id number] / [id number]
== END ==
LOC: PNCL 10:52
PROVIDERS: ATTEND Anesthesiology
DX: M51.16 Intervertebral disc disorders with radiculopathy, lumbar region (principal)
CPT/HCPCS: 62323; J1030; J1040; Q9965

== ENCOUNTER → 2018-11-14 | Outpatient (CLI) | payer OTHER ==
[~2018-11-14] MED LIST changes: +ACETAMINOPHEN 325 MG TABLET. PO PRN
--- NOTE | 2018-11-14 11:58 | PAIN ---
DATE OF SERVICE: 11/14/2018 DIAGNOSES: Lumbar radiculopathy with lumbar degenerative disk disease. HISTORY OF PRESENT ILLNESS: The patient is a 33-year-old female who returns for followup status post lumbar epidural steroid injection x 2. The patient reports a good about 40% improvement after last injection, still pain in the low back. Her left lower extremity was doing much better, but she has some pain in the right lower extremity down in the posterior gluteus, posterior thigh and calf. The patient reports shooting pain is much better on the left side, still pain across the low back; however, the patient reports she fell at work about a week ago and this has caused her pain to be significantly worse on the low back as well as on the right side. The patient reports pain is 7 on a scale of 10 at its worst, 5 on average and 3 at its least and is a 5 today. The patient reports it is aching, sharp, tight, dull, shooting, radiating and again worse on the right than the left. At this time, the patient reports no new motor or sensory deficits, no new bowel or bladder incontinence or other complaints. Initially, she was doing much better with returning to work function as well as household activities with greater ease and comfort, very rarely awakens her from sleep at night. PHYSICAL EXAMINATION: VITAL SIGNS: The patient's blood pressure is 124/88, pulse 81, respirations 20, temperature is 97.8 degrees Fahrenheit, height is 5 feet 8 inches, weight is 219 pounds. GENERAL: The patient is awake, alert, oriented, appropriate, very pleasant demeanor. HEENT: Head shows normocephalic, atraumatic. Extraocular movements intact and symmetrical. Oral cavity: Mucous membranes moist and pink. Dentition is intact. NECK: Shows anterior throat supple without palpable lymphadenopathy noted. Swallow reflex is symmetrical. CHEST: Shows normal with inspection. Breath sounds clear to auscultation bilaterally. HEART: Shows S1, S2 clear. No murmurs auscultated. ABDOMEN: Soft, nontender and nondistended. No palpable organomegaly is noted. No rebound or guarding demonstrated. BACK: Shows spine grossly in the midline. Normal appearing thoracic kyphosis and lumbar lordotic curvature. Lumbar paraspinous musculature shows symmetrical on inspection, with palpation shows some moderate tenderness diffusely only in the low lumbar distribution without radiation. The patient has good rotational motion of lumbar spine, both laterally as well as extension and flexion without difficulty or pain reported. EXTREMITIES: Lower extremities show deep tendon reflexes 2+ in the patellar and tendo calcaneus tendons are 1+ bilaterally. Motor exam is approximately 4 on a scale of 5, but equal and symmetrical dorsiflexion, extension, quadriceps and hamstring flexion. Peripheral pulses are 2+ radial distribution. No peripheral edema is noted. Options were discussed with the patient. The patient's old chart was reviewed as her current medication regimen updated. Current review of systems is updated today as well. We will proceed with a third in the series of lumbar epidural steroid injection today with fluoroscopic guidance. Risks were again discussed including, but not limited to bleeding, infection, possibility of epidural hematoma and subsequent neurological compromise, dural puncture, headaches, spinal cord and/or nerve damage, side effects of steroid medication and poor results regarding pain control. The patient understands and wished to proceed. The patient to return to clinic in approximately 2 weeks for followup, was counseled on return appointment, activity level and side effects to be aware of. DIAGNOSIS: Lumbar radiculopathy with lumbar degenerative disk disease. PROCEDURE: Lumbar epidural steroid injection, translaminar approach at L5-S1 level using C-arm fluoroscopic guidance under sterile prep and drape using local anesthetic. MEDICATION INJECTED: A total of 120 mg Depo-Medrol plus 10 mL of preservative-free normal saline and 2 mL of Isovue for contrast. CONDITION AT DISCHARGE: Stable. Initial needle placement noted to have a small amount of CSF in the needle, this was redirected and replaced under direct fluoroscopic vision showing good epidural spread of contrast. However, the patient did have a headache, positional upon getting up from the procedure table. The patient was allowed to rest in recovery for approximately 30 minutes with decrease in headache after Tylenol administered orally. The patient's sister is here to drive her. We discussed the possibilities of necessary for need for a blood patch in the future. She would like to maintain hydration at this time and analgesics for the headache. If not significantly improved, we will follow up in approximately 1-2 days and proceed with an epidural blood patch if necessary. KOSTAS SMITH MD DR: YEIMI/valdo JOB#: [id number] / [id number]
== END | disposition home or self-care (01) ==
LOC: PNCL 10:08
PROVIDERS: ATTEND Anesthesiology
DX: M51.16 Intervertebral disc disorders with radiculopathy, lumbar region (principal); Z88.0 Allergy status to penicillin; Z88.6 Allergy status to analgesic agent; Z91.030 Bee allergy status
CPT/HCPCS: 62323; J1030; J1040; Q9965

== ENCOUNTER → 2018-11-15 | Outpatient (CLI) | payer OTHER ==
[~2018-11-15] MED LIST changes: -ACETAMINOPHEN 325 MG TABLET. PO PRN; +BUTA1TAB23 PO; +MULT1TAB52 PO; +NAPR-514 PO; +ONDA4TAB12 PO; -PANT40TA5 PO; +PANT40TA77 PO; +PARO30TA45 PO; +PRED20TA PO; +RANI-376 PO; +SODI1TAB11 PO; -methylPREDNISolone ACETATE 40 MG/ML VIAL. ONE; -methylPREDNISolone ACETATE 80 MG/ML VIAL. ONE
--- NOTE | 2018-11-15 15:25 | PAIN ---
DATE OF SERVICE: 11/15/2018 DIAGNOSES: 1. Lumbar radiculopathy with lumbar degenerative disk disease. 2. Post-dural puncture headache. HISTORY OF PRESENT ILLNESS: The patient is a 33-year-old female who returns for followup after the injection yesterday with a spinal fluid identified on an epidural injection with a significant positional headache, getting worse overnight with some nausea and vomiting every time she sits up, better with lying down. No nuchal rigidity, no fevers, but significant headache and nausea, very positional in quality. The patient reports difficulty sleeping last night, but better with lying down. Again, sitting up causes significant nausea and actual emesis and vomiting this morning. The patient called earlier this morning. We had her come in fairly quickly and will plan on proceeding with a blood patch today. The patient reports no new motor or sensory deficits. Her back is actually doing better, as is her lower extremities, her left leg specifically after the injection yesterday, but still significant postural headache. PHYSICAL EXAMINATION: VITAL SIGNS: The patient's blood pressure 133/71, pulse 93, respirations 18, temperature 97.8 degrees Fahrenheit. Height is 5 feet 8 inches, weight is 219 pounds. GENERAL: The patient is awake, alert, oriented, appropriate, very pleasant demeanor. The patient appears ill with some nausea and actually holding emesis bag with nausea feeling. The patient is alert and appropriate. BACK: Shows spine grossly in the midline. Very small puncture wound from the injection yesterday, which is nonerythematous, nontender. Lumbar paraspinous muscle shows symmetrical with very minimal tenderness with palpation in the lower distribution, which was more tender yesterday. Lower extremities show deep tendon reflexes at 2+ in the patellar, 1+ tendo-calcaneus tendons. Motor exam is a 4 on a scale of 5 and equal bilaterally. NECK: Shows good rotational motion of cervical spine. No nuchal rigidity, no difficulty with rotation both laterally greater than 45 degrees right and left as well as extension and forward flexion. Right and left lateral rotation without difficulty. Options were discussed with the patient. The patient's old chart was reviewed as her current medication regimen updated. Current review of systems updated today as well. We will proceed with a lumbar epidural blood patch today for post-dural puncture headache. Risks were discussed including but not limited to bleeding, infection, possibility of epidural hematoma and subsequent neurologic compromise, dural punctures, headaches, worsening spinal headache and poor results regarding pain control. The patient understands and wished to proceed. The patient will return to clinic in approximately 2 weeks as scheduled. She was counseled on return appointment, activity level and side effects to be aware of. DIAGNOSIS: Post-dural puncture headache. PROCEDURE: Epidural lumbar blood patch under sterile prep and drape using local anesthetic. MEDICATION INJECTED: 20 mL of the patient's own blood sterilely transferred from right antecubital vein to the epidural space, which was verified with both AP and lateral fluoroscopy and contrast showing good posterior spread in the epidural space with good preservative-free normal saline, loss of resistance technique without aspiration. CONDITION AT DISCHARGE: Stable. The patient tolerated procedure well, had no complications. It is noted that her headache was better within the first 5 minutes following the procedure, even with sitting in an upright position. KOSTAS MSITH MD DR: YEIMI/valdo JOB#: [id number] / [id number]
== END | disposition home or self-care (01) ==
LOC: PNCL 12:04
PROVIDERS: ATTEND Anesthesiology
DX: G97.1 Other reaction to spinal and lumbar puncture (principal); M51.16 Intervertebral disc disorders with radiculopathy, lumbar region; Z88.0 Allergy status to penicillin; Z88.6 Allergy status to analgesic agent; Z91.030 Bee allergy status
CPT/HCPCS: 62273; 77003; Q9965

== ENCOUNTER 2018-11-27 07:38 | Emergency (ER) | payer MEDICAID, OTHER ==
[~2018-11-27] VITALS: Ht 172.7 cm; Wt 99.8 kg
[~2018-11-27 07:38] MED LIST changes: -BUTA1TAB23 PO; -IOHEXOL 180 MG/ML 10 ML VIAL. ONE; -MULT1TAB52 PO; -NAPR-514 PO; -ONDA4TAB12 PO; +PANT40TA5 PO; -PANT40TA77 PO; -PARO30TA45 PO; -PRED20TA PO; -RANI-376 PO; -SODI1TAB11 PO
[2018-11-27] MEDS ORDERED: diphenhydrAMINE 50 MG/ML VIAL IVP ONE (08:30)
[2018-11-27] MEDS ORDERED: IV NORMAL SALINE 1000ML BAG 1,000 ML IV ONE ×2 (08:30→10:00)
[2018-11-27] MEDS ORDERED: DEXAMETHASONE SOD PHOS 20 MG/5 ML VIAL. IV ONE (08:30)
[2018-11-27] MEDS ORDERED: ONDANSETRON PF 4 MG/2 ML VIAL. IV ONE (08:30)
[2018-11-27] MEDS ORDERED: KETOROLAC 30 MG/ML VIAL. IV ONE (08:30)
--- NOTE | 2018-11-27 08:49 | PHYS DOC ---
Past Medical History Past Medical History: Anxiety, Bipolar, Depression, Kidney Stone, Ovarian Cyst Additional Past Medical Histor: CHRONIC BACK PAIN, PTSD Past Surgical History: Tonsillectomy, Tubal ligation Additional Past Surgical Histo: "duodenojejunostomy" Alcohol Use: Rarely Drug Use: Marijuana Social History Narrative: LAST USE ON 11/12/18 Adult General Chief Complaint Chief Complaint: HEADACHE HPI HPI Patient is 33 yo female who presents with complaint of headache. Pt reports she had an epidural at her pain clinic for chronic lumbar pain on 11/14/17. Afterwards , she had a headache, nausea and vomiting and received a blood patch the following day (11/15/17). 3-4 days after the blood patch she reports she slipped but did not have LOC or hit her head, however her pain became worse. She reports that since then she has had constant pressure and occasional sharp pain in her head which are worse with sitting up and better with laying down. She called her pain clinic a few days after the blood patch who told her to come to ED if symptoms continued. This is patient's 9th epidural and she has never had symptoms this severe following the procedure. She admits to intermittent nausea and vomiting, occasional dizziness, post nasal drainage, and new onset left calf pain which she describes as "muscular pain". Denies chest pain, SOA, cough , nasal congestion, sore throat, abdominal pain, diarrhea, pain w/ urination. Denies recent travel or trauma. She has been managing her pain w/ Excedrin, tylenol, and baclofen with minimal symptomatic relief. She takes zofran for nausea. She also takes clonazepam, lamictal, and an SSRI for anxiety, PTSD, and bipolar disorder. She last took any medication around midnight and reports she took excedrin, baclofen, and clonazepam. Pt reports she gets the most symptomatic relief from clonazepam. She drove herself to the ED today. Patient does reports her symptoms have improved so that now she is able to be symptom free/ able to be upright for 6 hrs and worked as a fine dining server for 4 hrs. Review of Systems Review of Systems Constitutional: Denies fever or chills [] Eyes: Denies change in visual acuity, redness, or eye pain [] HENT: Denies nasal congestion or sore throat, admits runny nose Respiratory: Denies cough or shortness of breath Cardiovascular: Denies chest pain GI: Denies abdominal pain, bloody stools or diarrhea; admits nausea and vomiting : Denies dysuria or hematuria [] Musculoskeletal: Reports neck and upper back stiffness Integument: Denies rash or skin lesions [] Neurologic: Admits headache; denies focal weakness or sensory changes [] Complete systems were reviewed and found to be within normal limits, except as documented in this note. Current Medications Current Medications Current Medications Medications (Trade) Dose Ordered Sig/Salvador Start Time Stop Time Status Last Admin Dose Admin Acetaminophen/ Butalbital/ Caffeine (Fioricet) 2 tab 1X ONCE 11/27/18 10:00 11/27/18 10:01 DC 11/27/18 10:25 2 TAB Dexamethasone Sodium Phosphate (Decadron) 10 mg 1X ONCE 11/27/18 08:30 11/27/18 08:31 DC 11/27/18 08:43 10 MG Diphenhydramine HCl (Benadryl) 50 mg 1X ONCE 11/27/18 08:30 11/27/18 08:31 DC 11/27/18 08:39 50 MG Ketorolac Tromethamine (Toradol 30mg Vial) 30 mg 1X ONCE 11/27/18 08:30 11/27/18 08:31 DC 11/27/18 08:37 30 MG Ondansetron HCl (Zofran) 4 mg 1X ONCE 11/27/18 08:30 11/27/18 08:31 DC 11/27/18 08:39 4 MG Sodium Chloride 1,000 ml @ 1,000 mls/hr 1X ONCE 11/27/18 10:00 11/27/18 10:38 DC Allergies Allergies Allergies Coded Allergies Type Severity Reaction Last Updated Verified aspirin Allergy Intermediate 06/17/16 Yes venom-honey bee Allergy Intermediate SWELLING 06/17/16 Yes Penicillins Adverse Reaction Intermediate 06/17/16 Yes Physical Exam Physical Exam Constitutional: Well developed, well nourished, crying laying R lateral recumbent during history, non-toxic appearance. [] HENT: Normocephalic, atraumatic, bilateral TMs normal, oropharynx moist, no oral exudates, nose normal. [] Eyes: PERRL, EOMI, conjunctiva normal, no discharge. [] Neck: Normal range of motion with left and right rotation, flexion and extension , no tenderness, supple, Kernig sign negative, no meningeal signs Cardiovascular: Heart rate regular rhythm, no murmur [] Lungs & Thorax: Bilateral breath sounds clear to auscultation [] Abdomen:soft, no tenderness, no masses, no pulsatile masses; midline scar present Skin: Warm, dry, no erythema, no rash Back: No tenderness to palpation, small punctate lesions present midline lumbar spine. Extremities: No tenderness, ROM intact, no edema, straight leg raise negative both right and left. Neurologic: Alert and oriented X 3, normal motor function, normal sensory function, no focal deficits noted. No motor drift bl UE/LE. No past pointing with finger to nose. Strength UE and LE 5/5. Gait unremarkable. Psychologic: Affect normal, judgement normal, mood tearful Current Patient Data Vital Signs Vital Signs Date Time Temp Pulse Resp B/P (MAP) Pulse Ox O2 Delivery O2 Flow Rate FiO2 11/27/18 10:06 72 99 11/27/18 07:41 97.7 16 168/90 (116) Room Air 97.7 Lab Values Laboratory Tests Test 11/27/18 07:49 POC Urine HCG, Qualitative Hcg negative (Negative) EKG EKG [] Radiology/Procedures Radiology/Procedures [] Course & Med Decision Making Course & Med Decision Making Patient is 33 yo female with PMH of chronic pain who complains of severe headache, nausea, and vomiting since epidural on 11/14/18 requiring a blood patch on 11/15/18 at pain management clinic with Dr. Stein. Since the procedure patient notes she has had symptoms only relieved by laying flat. Initially she reported she was able to be upright for 6 hrs and worked as a fine dining server for 4 hrs, however later she reports she has only had 3-4 hours of symptomatic relief while upright. Patient reports she last took baclofen, Excedrin, and clonazepam at midnight but the pain is still so severe that she drove herself to the ED. On physical exam patient is hypertensive although the rest of her vitals are WNL. She is tearful yet talkative, with no focal neurologic deficits, neck has full ROM, straight leg raise negative bilaterally, and generally unremarkable physical exam. Patient's symptoms addressed with NS, dexamethasone, zofran, benadryl and toradol. On reassessment patient said her symptoms were marginally improved, however she was unsatisfied with the degree of pain relief. Spoke with Dr. Stein (Pain management), who agreed with the plan, and communicated Dr. Stein's agreement to patient. When discussing the plan to prescribe Fioricet , give referral to neurology, and to dc home with follow up, patient became confrontational and defensive. Patient voiced frustration that her pain was not better and that she did not receive any imaging or explanation as to why the headache symptoms have continued for so long. Additionally, she voiced that she felt her headache was d/t lack of CSF fluid replenishing after the dural puncture. Discussed with patient that d/t physical exam and lack of focal neurologic deficits or history of trauma to head, the risks of radiation from a head CT outweighed the benefits of imaging. Furthermore, we discussed with the patient that there was no way for us to replenish her CSF directly, that only time would help. Both patient and mother requested sonogram to "check for a leak ", however we explained that ultrasound will not be of benefit in this case as it does not show dural leakage. Finally, patient voiced that we have not helped her because our job is to treat the patient's pain and we have not done so. We further reinforced that our plan was to give patient Fioricet, which is a medication that she has not tried, allow the dexamethasone to help decrease inflammation and continue a course of prednisone, and to have the patient follow up with Dr. Martinez in neurology. Patient stable for discharge with outpatient follow-up with PCP, Dr. Stein ( pain management), and neurologist. Discussed findings and plan with patient and family, who acknowledge understanding and agreement. Dragon Disclaimer Dragon Disclaimer This electronic medical record was generated, in whole or in part, using a voice recognition dictation system. Departure Departure Impression: Primary Impression: Headache Disposition: 01 HOME, SELF-CARE Condition: STABLE Referrals: CORNELIUS CRALOS APRN (PCP) KINDRA RILEY MD, BRIAN N MD Patient Instructions: Headache, FAQs, Spinal Headache Scripts Prednisone (PREDNISONE) 20 Mg Tablet 2 TAB PO DAILY, #8 TAB Start this medication tomorrow, 11/28/18 Prov: MICHAEL NELSON DO 11/27/18 Ondansetron (ONDANSETRON ODT) 4 Mg Tab.rapdis 1 TAB PO PRN Q6-8HRS PRN for NAUSEA, #16 TAB Prov: MICHAEL NELSON DO 11/27/18 Butalb/Acetaminophen/Caffeine ([id number]-GHVF 50-325-40) 1 Each Tablet 1 EACH PO Q6HRS PRN for HEADACHE, #14 TAB Prov: MICHAEL NELSON DO 11/27/18 Problem Qualifiers Primary Impression: Headache Headache type: unspecified Headache chronicity pattern: unspecified pattern Intractability: intractable Qualified Codes: R51 - Headache MICHAEL NELSON DO Nov 27, 2018 08:49
[2018-11-27] MEDS ORDERED: BUTALB/APAP/CAFEIN 50/325/40MG TABLET. PO ONE (10:00)
[2018-11-27 10:06] VITALS: BP 190/109
[2018-11-27] MEDS ORDERED: PRED20TA PO (10:15)
[2018-11-27] MEDS ORDERED: BUTA1TAB23 PO (10:15)
[2018-11-27] MEDS ORDERED: ONDA4TAB12 PO (10:15)
== END 2018-11-27 10:26 | disposition home or self-care (01) ==
LOC: ER 07:38
DX: R51 Headache (principal); R11.2 Nausea with vomiting, unspecified; M43.6 Torticollis; M53.84 Other specified dorsopathies, thoracic region; F31.9 Bipolar disorder, unspecified; F41.9 Anxiety disorder, unspecified; G89.29 Other chronic pain; Z87.442 Personal history of urinary calculi; Z98.51 Tubal ligation status; Z88.0 Allergy status to penicillin; Z88.6 Allergy status to analgesic agent; Z91.030 Bee allergy status
CPT/HCPCS: 81025; 96374; 96375; 99283; J1100; J1200; J1885; J2405; J7030

== ENCOUNTER → 2019-01-01 | Day surgery (SDC) | payer OTHER ==
[~2019-01-01] MED LIST changes: +BUTA1TAB23 PO; +HYDROmorphone 2 MG/ML VIAL IV PRN; +IV RINGERS,LACTATED 1000ML 1,000 ML IV SCH; +LIDOCAINE 1% PF 2 ML VIAL. ID PRN; +MORPHINE SULFATE 4 MG/ML VIAL. IV PRN; +MULT1TAB52 PO; +NAPR-514 PO; +ONDA4TAB12 PO; +ONDANSETRON PF 4 MG/2 ML VIAL. IV PRN; +PARO30TA45 PO; +PRED20TA PO; +PROCHLORPERAZINE 10 MG/2 ML VIAL. IV PRN; +RANI-376 PO; +SODI1TAB11 PO; +fentaNYL PF VIAL 100 MCG/2 ML VIAL IV PRN
[2019-01-01 06:59] VITALS: BP 123/76
[2019-01-01 07:12] LABS: U PREG PATIENT NEGATIVE (NEG)
--- NOTE | 2019-01-01 07:35 | NUR ---
PT HERE FOR SURGERY WITH DR FLORENCE. DR FLORENCE CANCELING SURGERY BECAUSE REPORTED FROM OFFICE THAT PT DID NOT SHOW UP TO HER PRE OP APPOINTMENT. PT AND MOTHER VERY UPSET AND STATED NO ONE FROM DR FLORENCE'S OFFICE CALLED HER ABOUT AN APPOINTMENT. DR FLORENCE CALLED JUST TO VERIFY CANCELATION AND WILL NOT DO SURGERY UNTIL PT IS SEEN FOR HER PREOP APPOINTMENT. IV DC'D AND BELONGINGS RETURNED TO PT. LEFT [facility]PD AMB VERY UPSET ABOUT THE SITUATION. TOLD PT AND FAMILY TO CALL DR HURT AND GET THINGS STRAIGHTENED OUT.
== END | disposition home or self-care (01) ==
LOC: SURG 06:33
PROVIDERS: ATTEND Specialist
DX: N93.9 Abnormal uterine and vaginal bleeding, unspecified (principal); Z88.0 Allergy status to penicillin; Z88.6 Allergy status to analgesic agent; Z91.030 Bee allergy status
CPT/HCPCS: 81025

== ENCOUNTER 2019-01-11 05:39 | Day surgery (SDC) | payer OTHER ==
[~2019-01-11 05:39] MED LIST changes: -HYDROmorphone 2 MG/ML VIAL IV PRN; -IV RINGERS,LACTATED 1000ML 1,000 ML IV SCH; -LIDOCAINE 1% PF 2 ML VIAL. ID PRN; -MORPHINE SULFATE 4 MG/ML VIAL. IV PRN; -NAPR-514 PO; -ONDANSETRON PF 4 MG/2 ML VIAL. IV PRN; -PROCHLORPERAZINE 10 MG/2 ML VIAL. IV PRN; -SODI1TAB11 PO; -fentaNYL PF VIAL 100 MCG/2 ML VIAL IV PRN
[2019-01-11] MEDS ORDERED: SODI1TAB11 PO (06:14)
[2019-01-11 06:26] LABS: U PREG PATIENT NEGATIVE (NEG)
[2019-01-11] MEDS ORDERED: LIDOCAINE 1% PF 2 ML VIAL. ID PRN (07:00)
[2019-01-11] MEDS ORDERED: ONDANSETRON PF 4 MG/2 ML VIAL. IV PRN (07:00)
[2019-01-11] MEDS ORDERED: MORPHINE SULFATE 2 MG/ML VIAL. IV PRN (07:00)
[2019-01-11] MEDS ORDERED: PROCHLORPERAZINE 10 MG/2 ML VIAL. IV PRN (07:00)
[2019-01-11] MEDS ORDERED: OXYTOCIN 10 UNIT/ML VIAL. ONE (07:00)
[2019-01-11] MEDS ORDERED: fentaNYL PF VIAL 100 MCG/2 ML VIAL IV PRN (07:00)
[2019-01-11] MEDS ORDERED: IV RINGERS,LACTATED 1000ML 1,000 ML IV SCH (07:00)
[2019-01-11] MEDS ORDERED: miSOPROStol 200 MCG TABLET ONE ×5 (07:00)
[2019-01-11] MEDS ORDERED: HYDROmorphone 2 MG/ML VIAL IV PRN (07:00)
[2019-01-11] MEDS ORDERED: LIDOCAINE 2% PF 5 ML VIAL. ONE (07:23)
[2019-01-11] MEDS ORDERED: SEVOFLURANE 31 TO 60 MINUTES. IH ONE (07:23)
[2019-01-11] MEDS ORDERED: ONDANSETRON PF 4 MG/2 ML VIAL. ONE (07:23)
[2019-01-11] MEDS ORDERED: PROPOFOL 20 ML IV ONE ×2 (07:23→08:16)
[2019-01-11] MEDS ORDERED: KETOROLAC 30 MG/ML INJ FOR OR. INJ ONE (07:23)
[2019-01-11] MEDS ORDERED: MIDAZOLAM HCL/PF 2 MG/2 ML VIAL. ONE (07:23)
[2019-01-11] MEDS ORDERED: DEXAMETHASONE SOD PHOS 20 MG/5 ML VIAL. ONE (07:23)
[2019-01-11] MEDS ORDERED: fentaNYL PF VIAL 100 MCG/2 ML VIAL ONE (07:23)
[2019-01-11] MEDS ORDERED: SCOPOLAMINE 1.5MG PATCH. TD ONE ×2 (07:43→08:00)
--- NOTE | 2019-01-11 08:05 | PDOC1 ---
History and Physical Date of Admission Date of Admission DATE: 01/11/19 TIME: 07:56 Identification/Chief Complaint Chief Complaint AUB Source Source: Patient History of Present Illness History of Present Illness AUB greater one year Past Medical History Cardiovascular: No pertinent hx Pulmonary: Asthma GI: GERD Heme/Onc: No pertinent hx Hepatobiliary: No pertinent hx Psych: No pertinent hx, Anxiety Rheumatologic: Fibromyalgia ENT: No pertinent hx Renal/: No pertinent hx Endocrine: No pertinent hx Dermatology: No pertinent hx Past Surgical History Past Surgical History: Appendectomy, Cholecystectomy, Tubal Ligation, Other ( Evy-en-Y) Social History Smoke: 1 pack per day ALCOHOL: social Current Medications Current Medications Current Medications Ondansetron HCl (Zofran) 4 mg PRN Q6HRS PRN IV NAUSEA/VOMITING; Start 01/11/19 at 07:00; Stop 01/12/19 at 06:59 Fentanyl Citrate (Fentanyl 2ml Vial) 25 mcg PRN Q5MIN PRN IV MILD PAIN; Start 01/11/19 at 07:00; Stop 01/12/19 at 06:59 Fentanyl Citrate (Fentanyl 2ml Vial) 50 mcg PRN Q5MIN PRN IV MODERATE TO SEVERE PAIN; Start 01/11/19 at 07:00; Stop 01/12/19 at 06:59 Morphine Sulfate (Morphine Sulfate) 1 mg PRN Q10MIN PRN IV SEVERE PAIN; Start 01/11/19 at 07:00; Stop 01/12/19 at 06:59 Ringer's Solution 1,000 ml @ 30 mls/hr Q24H IV Last administered on 01/11/19at 06:21; Start 01/11/19 at 07:00; Stop 01/11/19 at 18:59 Lidocaine HCl (Xylocaine-Mpf 1% 2ml Vial) 2 ml PRN 1X PRN ID IV START; Start at 07:00; Stop 01/12/19 at 06:59 Hydromorphone HCl (Dilaudid) 0.5 mg PRN Q10MIN PRN IV SEV PAIN, Second choice; Start 01/11/19 at 07:00; Stop 01/12/19 at 06:59 Prochlorperazine Edisylate (Compazine) 5 mg PACU PRN PRN IV NAUSEA, MRX1; Start 01/11/19 at 07:00; Stop 01/12/19 at 06:59 Cefazolin Sodium/ Dextrose 50 ml @ As Directed STK-MED ONCE IV ; Start 01/11/19 at 06:25; Stop 01/11/19 at 06:26; Status DC Misoprostol (Cytotec 200mcg Tab) 200 mcg STK-MED ONCE .ROUTE ; Start 01/11/19 at 07:00; Stop 01/11/19 at 07:01; Status DC Oxytocin (Pitocin) 10 unit STK-MED ONCE .ROUTE ; Start 01/11/19 at 07:00; Stop at 07:01; Status DC Misoprostol (Cytotec 200mcg Tab) 200 mcg STK-MED ONCE .ROUTE ; Start 01/11/19 at 07:00; Stop 01/11/19 at 07:01; Status DC Misoprostol (Cytotec 200mcg Tab) 200 mcg STK-MED ONCE .ROUTE ; Start 01/11/19 at 07:00; Stop 01/11/19 at 07:01; Status DC Misoprostol (Cytotec 200mcg Tab) 200 mcg STK-MED ONCE .ROUTE ; Start 01/11/19 at 07:00; Stop 01/11/19 at 07:01; Status DC Misoprostol (Cytotec 200mcg Tab) 200 mcg STK-MED ONCE .ROUTE ; Start 01/11/19 at 07:00; Stop 01/11/19 at 07:01; Status DC Midazolam HCl (Versed) 2 mg STK-MED ONCE .ROUTE ; Start 01/11/19 at 07:23; Stop 01/11/19 at 07:24; Status DC Fentanyl Citrate (Fentanyl 2ml Vial) 100 mcg STK-MED ONCE .ROUTE ; Start at 07:23; Stop 01/11/19 at 07:24; Status DC Sevoflurane (Ultane) 30 ml STK-MED ONCE IH ; Start 01/11/19 at 07:23; Stop at 07:24; Status DC Propofol 20 ml @ As Directed STK-MED ONCE IV ; Start 01/11/19 at 07:23; Stop 01/11 at 07:24; Status DC Dexamethasone Sodium Phosphate (Decadron) 20 mg STK-MED ONCE .ROUTE ; Start 01/11 at 07:23; Stop 01/11/19 at 07:24; Status DC Ondansetron HCl (Zofran) 4 mg STK-MED ONCE .ROUTE ; Start 01/11/19 at 07:23; Stop 01/11/19 at 07:24; Status DC Ketorolac Tromethamine (Toradol For Or Only) 30 mg STK-MED ONCE INJ ; Start 01/11 at 07:23; Stop 01/11/19 at 07:24; Status DC Lidocaine HCl (Lidocaine Pf 2% Vial) 5 ml STK-MED ONCE .ROUTE ; Start 01/11/19 at 07:23; Stop 01/11/19 at 07:24; Status DC Scopolamine (Transderm-Scop) 1 patch STK-MED ONCE TD ; Start 01/11/19 at 07:43; Stop 01/11/19 at 07:44; Status DC Scopolamine (Transderm-Scop) 1 patch 1X ONCE TD Last administered on 01/11/19at 07:50; Start 01/11/19 at 08:00; Stop 01/11/19 at 08:01 Active Scripts Active Ondansetron Odt (Ondansetron) 4 Mg Tab.rapdis 1 Tab PO PRN Q6-8HRS PRN Wfuakl-Yodjynhj-Shpr 50-325-40 (Butalb/Acetaminophen/Caffeine) 1 Each Tablet 1 Each PO Q6HRS PRN Reported [place] Heartburn Tab Eff (Sodium Bicarbonate/Sodium Cit) 1 Each Tablet.eff 1 Each PO PRN PRN Multivitamins (Multivitamin) 1 Each Tablet 1 Each PO DAILY Zantac (Ranitidine Hcl) 150 Mg Tablet 150 Mg PO PRN PRN [place] 5-325 Tablet (Acetaminophen/Hydrocodone Bitart) 1 Each Tablet 1 Tab PO PRN Q6HRS PRN Paxil (Paroxetine Hcl) 30 Mg Tablet 30 Mg PO DAILY Lamotrigine 250 Mg Tab.er.24 250 Mg PO DAILY Ibuprofen 800 Mg Tablet 800 Mg PO PRN Q6HRS PRN Baclofen 10 Mg Tablet 1 Tab PO PRN Q6HRS PRN Clonazepam 0.5 Mg Tablet 0.5 Mg PO PRN BID PRN Allergies Allergies: Coded Allergies: venom-honey bee (Verified Allergy, Intermediate, SWELLING, 01/11/19) Penicillins (Verified Adverse Reaction, Intermediate, NAUSEA/VOMITING, 01/11) aspirin (Verified Adverse Reaction, Intermediate, GI UPSET, 01/11/19) tolerates ibuprofen Physical Exam General: Alert, Oriented X3, Cooperative, No acute distress HEENT: PERRLA Lungs: Clear to auscultation, Normal air movement Breasts: Normal, Rt breast nml w/o mass, Lt breast nml w/o mass, Nipples normal Abdomen: Normal bowel sounds, Soft, No tenderness, No hepatosplenomegaly, No masses Male Genitals Exam: normal genitalia, normal prostate Extremities: No clubbing, No cyanosis, No edema, Normal pulses, No tenderness/ swelling Skin: No rashes, No breakdown, No significant lesion Neuro: Normal gait, Normal speech, Strength at 5/5 X4 ext, Normal tone, Sensation intact, Cranial nerves 3-12 NL, Reflexes 2+ Psych/Mental Status: Mental status NL, Mood NL Vitals Vitals Vital Signs Date Time Temp Pulse Resp B/P (MAP) Pulse Ox O2 Delivery O2 Flow Rate FiO2 01/11/19 06:16 99.4 75 16 132/91 98 Room Air 99.4 Labs Labs Laboratory Tests Test 01/11/19 05:58 Urine Test Negative (NEG) Laboratory Tests Test 01/11/19 05:58 Urine Test Negative (NEG) VTE Prophylaxis Ordered VTE Prophylaxis Devices: Yes VTE Pharmacological Prophylaxi: No Assessment/Plan Assessment/Plan AUB Hysteroscopy D and C with ablation GWEN FLORENCE MD Jan 11, 2019 08:05
[2019-01-11] MEDS ORDERED: FAMOTIDINE 20 MG/2 ML VIAL ONE (08:13)
[2019-01-11] MEDS ORDERED: NAPR-514 PO (08:54)
[2019-01-11] MEDS ORDERED: HYDR-3164 PO (08:54)
--- NOTE | 2019-01-11 08:56 | PDOC ---
BRIEF OPERATIVE NOTE Pre-Op Diagnosis AUB Post-Op Diagnosis Same Procedure Performed Hysterscopic D and C with Ablation Surgeon Delgado Anesthesia Type: General Blood Loss 10cc Specimens Obtained EMC Complications None GWEN FLORENCE MD Jan 11, 2019 08:56
[2019-01-11] MEDS: fentaNYL PF VIAL 100 MCG/2 ML VIAL IV PRN ×2 (09:11→09:23)
--- NOTE | 2019-01-11 09:20 | OP ---
DATE OF SURGERY: 01/11/2019 PREOPERATIVE DIAGNOSIS: Abnormal uterine bleeding. POSTOPERATIVE DIAGNOSIS: Abnormal uterine bleeding. PROCEDURE: 1. Exam under anesthesia. 2. Hysteroscopic D and C. 3. Ablation with NovaSure. SURGEON: Gwen Natarajan M.D. PLUMBER GASFITTER: None. ANESTHESIA: General. ESTIMATED BLOOD LOSS: 10 mL. SPECIMENS: Endometrial curettings. COMPLICATIONS: None. FINDINGS: Uterus on exam under anesthesia of the Zanaflex approximately 8-9 week size, no masses appreciated. The uterus was sounded to 10 cm. Cervical length was 5 cm, uterine length of 5 cm. The cervical width was 4.5 cm. The duration of the ablation was 120 seconds at the settings on the ablation machine. The diagnostic hysteroscopic part of the procedure showed no abnormal masses within the uterine cavity. Cornu were not visualized. Sharp curettings were performed and placed on Telfa sponge. The NovaSure device was then placed. The endometrial cavity was fulgurated for 120 seconds. Hysteroscopic apparatus was placed through the cervical os. Good fulguration was noted. Procedure was terminated. The vaginal vault was wiped free of any adherent tissue or blood. A single tooth tenaculum sites were hemostatic. All instrumentations were removed. Sponge, needle and instrument counts were correct x 2 per nursing staff. The patient went to postop anesthesia recovery in stable condition. GWEN NATARAJAN MD DR: MELONIE/valdo JOB#: [id number] / [id number]
[2019-01-11] MEDS ORDERED: HYDROcodone/APAP 5/325MG 1 TAB TABLET PO ONE (09:30)
[2019-01-11] MEDS ORDERED: HYDROcodone/APAP 5/325MG 1 TAB TABLET PO PRN (09:45)
[2019-01-11 10:15] VITALS: BP 126/77
--- NOTE | 2019-01-14 11:08 | PATHOLOGY ---
[facility] Accession Number: [id number] . 01 Material submitted: . ENDOMETRIAL CURETTINGS . 01 Clinical history: . Endometrial bleeding . 02 Diagnosis: Endometrial curettings: - Early secretory endometrium. . ([facility]:mm; 01/14/2019) [facility]/01/14/2019 . 02 Comment: There is no evidence of hyperplasia or malignancy. . ([facility]:mm; 01/14/2019) . 02 Electronically signed: . Antonio Urias MD, Pathologist NPI- [id number] . 01 Gross description: . Received in formalin labeled "Sanket Freed, endometrial curettings," is blood-tinged mucoid material containing small fragments of shirley membranous tissue, measuring 2.4 x 0.9 x 0.5 cm in aggregate dimensions. The specimen is filtered and submitted entirely in cassette A1. ([facility]; 01/11/2019) TOB/TOB . 02 Pathologist provided ICD-10: N93.9 . 02 CPT . 608183 Specimen Comment: A courtesy copy of this report has been sent to Specimen Comment: [phone], . Specimen Comment: Report sent to and Specimen Comment: A duplicate report has been generated due to demographic updates. Performed at: [facility] [address] [facility] [address], [place] [id number] MD David Shah MD Phone: [phone] Performed at: [facility] [address] [place], [place] [id number] MD Antonio Urias MD Phone: [phone]
== END 2019-01-11 10:20 | disposition home or self-care (01) ==
LOC: SURG 05:39
PROVIDERS: ATTEND Specialist
DX: N93.9 Abnormal uterine and vaginal bleeding, unspecified (principal); Z88.0 Allergy status to penicillin; Z88.6 Allergy status to analgesic agent; Z91.030 Bee allergy status; J45.909 Unspecified asthma, uncomplicated; K21.9 Gastro-esophageal reflux disease without esophagitis; F41.9 Anxiety disorder, unspecified; M79.7 Fibromyalgia; Z90.49 Acquired absence of other specified parts of digestive tract; Z98.51 Tubal ligation status; Z72.89 Other problems related to lifestyle; F17.210 Nicotine dependence, cigarettes, uncomplicated; Z79.899 Other long term (current) drug therapy
CPT/HCPCS: 58563; 81025; 88305; A7015; J0696; J0780; J1100; J1885; J2001; J2250; J2405; J2704; J3010; J3490; J7030; J7120; J2590

== ENCOUNTER 2020-03-23 13:40 | Emergency (ER) | payer MEDICAID, OTHER ==
[~2020-03-23] VITALS: Ht 172.7 cm; Wt 108.2 kg
[~2020-03-23 13:40] MED LIST changes: +CLON-77 PO; -CLON0.5T11 PO; -LAMO100T PO; +LAMO100T8 PO; +NAPR-514 PO; -PANT40TA5 PO; +PANT40TA77 PO; +SODI1TAB11 PO
[2020-03-23] MEDS ORDERED: FAMOTIDINE 20 MG/2 ML VIAL IVP ONE (14:15)
[2020-03-23] MEDS ORDERED: MORPHINE SULFATE 10 MG/ML VIAL. IV ONE (14:15)
[2020-03-23] MEDS ORDERED: IV NORMAL SALINE 1000ML BAG 1,000 ML IV ONE (14:15)
[2020-03-23 14:21] LABS: BILIRUBIN,URINE NEGATIVE (NEG); CLARITY,URINE CLEAR; COLOR,URINE YELLOW; NITRITE,URINE NEGATIVE (NEG); PH,URINE 8.5 (<5.0-8.0); PROTEIN,URINE NEGATIVE (NEG-TRACE); UROBILINOGEN,URINE 0.2 mg/dL (0.2 mg/dL)
[2020-03-23 14:23] LABS: BASO # 0.1 x10^3/uL (0.0-0.2); BASO % 0 % (0-3); EOS # 0.1 x10^3/uL (0.0-0.7); EOS % 1 % (0-3); HEMATOCRIT 43.6 % (36.0-47.0); HEMOGLOBIN 14.9 g/dL (12.0-15.5); LYMPH % 6 % (24-48); MEAN CORPUSCULAR HEMOGLOBIN 29 pg (25-35); MEAN CORPUSCULAR HGB CONC 34 g/dL (31-37); MEAN CORPUSCULAR VOLUME 84 fL (79-100); MONO % 6 % (0-9); NEUT # 14.8 x10^3/uL (1.8-7.7); NEUT % 88 % (31-73); PLATELET COUNT 258 x10^3/uL (140-400); RED BLOOD COUNT 5.18 x10^6/uL (3.50-5.40); RED CELL DISTRIBUTION WIDTH 13.5 % (11.5-14.5); WHITE BLOOD COUNT 16.9 x10^3/uL (4.0-11.0)
[2020-03-23] MEDS ORDERED: ONDANSETRON PF 4 MG/2 ML VIAL. IVP ONE (14:30)
[2020-03-23] MEDS ORDERED: ONDANSETRON PF 4 MG/2 ML VIAL. IM ONE (14:30)
[2020-03-23 14:39] LABS: CALCIUM 8.6 mg/dL (8.5-10.1); CREATININE 0.9 mg/dL (0.6-1.0); GFR 71.7; POTASSIUM 3.9 mmol/L (3.5-5.1)
[2020-03-23 14:45] LABS: ALBUMIN 3.6 g/dL (3.4-5.0); TOTAL BILIRUBIN 0.6 mg/dL (0.2-1.0); TOTAL PROTEIN 7.2 g/dL (6.4-8.2)
[2020-03-23 14:45] LABS: BARBITURATES NEG (NEG); BENZODIAZEPINES NEG (NEG); CANNABINOIDS POS (NEG); COCAINE NEG (NEG); METHADONE NEG (NEG); OPIATES NEG (NEG); PHENCYCLIDINE NEG (NEG)
[2020-03-23] MEDS ORDERED: IOHEXOL 300 MG/ML 100ML VIAL. IV ONE (14:45)
[2020-03-23 14:48] LABS: BACTERIA,URINE FEW /HPF (0-FEW); RBC,URINE 0 /HPF (0-2); SQUAMOUS EPITHELIAL CELL,UR MOD /LPF; WBC,URINE OCC /HPF (0-4)
[2020-03-23 14:50] LABS: AMPHETAMINE/METHAMPHETAMINE NEG (NEG)
[2020-03-23 15:00] VITALS: BP 121/63
[2020-03-23] MEDS ORDERED: CONTRAST GIVEN. MC PRN (15:00)
--- NOTE | 2020-03-23 15:26 | RAD ---
Exam: CT abdomen and pelvis with contrast INDICATION: Abdominal pain, nausea vomiting diarrhea TECHNIQUE: Sequential axial images through the abdomen and pelvis obtained 73 mL of Omni 300 IV contrast. Sagittal and coronal reformatted images were reconstructed from the axial data and reviewed. Comparisons: None FINDINGS: Heart size is normal. No pericardial effusion. Visualized lung bases are clear. No pleural effusion. Diffuse hepatic steatosis. Spleen, pancreas and adrenals are unremarkable. No perinephric inflammation or hydronephrosis. No renal or ureteral calculi are identified. No renal or ureteral calculi are identified. Bladder is decompressed not well evaluated. Uterus is nonenlarged. No abnormal adnexal mass. There is postsurgical changes noted in the left lower quadrant small bowel. Remainder of the large and small bowel are unremarkable. No free intra-abdominal air or fluid. No obstruction. Abdominal aorta has a normal course and caliber. Abdominal vasculature is patent. No enlarged abdominal lymph nodes are identified. No suspicious osseous lesions or acute fractures. IMPRESSION: 1. No acute process identified within the abdomen or pelvis. 2. Mild diffuse hepatic steatosis. Exposure: One or more of the following in the visualized dose reduction techniques were utilized for this examination: 1. Automated exposure control 2. Adjustment of the MA and/or KV according to patient size 3. Use of iterative of reconstructive technique Electronically signed by: Victor Manuel Arevalo MD (03/23/2020 3:23 PM) [id number]
[2020-03-23 15:30] LABS: % BANDS 15 % (0-9); % BASOS 2 % (0-3); % LYMPHS 7 % (24-48); % MONOS 4 % (0-10); % SEGS 72 % (35-66)
[2020-03-23 15:31] LABS: PLT ESTIMATE ADEQUATE (ADEQUATE); TOXIC GRANULATION SLIGHT
[2020-03-23] MEDS ORDERED: LIDO:MAALOX 1:1 20 ML SINGLE DOSE. ONE (15:46)
[2020-03-23] MEDS ORDERED: LIDO:MAALOX 1:1 20 ML SINGLE DOSE. SWSW ONE (16:00)
[2020-03-23] MEDS ORDERED: ONDA4TAB12 PO (16:05)
--- NOTE | 2020-03-23 16:06 | PHYS DOC ---
Past Medical History Past Medical History: Anxiety, Bipolar, Depression, Kidney Stone, Ovarian Cyst Additional Past Medical Histor: CHRONIC BACK PAIN, PTSD,SMSA syndrome Past Surgical History: Tonsillectomy, Tubal ligation Additional Past Surgical Histo: "duodenojejunostomy", endometrial ablation Smoking Status: Current Some Day Smoker Alcohol Use: Rarely Drug Use: Marijuana Social History Narrative: reports General Adult EDM: Chief Complaint: NAUSEA/VOMITING/DIARRHA HPI: HPI: Patient is a 35 year old female with history of anxiety, bipolar, kidney stones, duodenal surgery, ovarian cysts, who presents to the ED today compla ining of nausea and vomiting that began this morning. Patient is also complaining of 10 out of 10 right-sided abdominal pain that she believes is occurring when she vomits. She describes the pain as a muscle pull. Patient denies any hematemesis. She states her abdominal pain is worse when she vomits. Review of Systems: Review of Systems: Constitutional: Denies fever or chills. [] Eyes: Denies change in visual acuity. [] HENT: Denies nasal congestion or sore throat. [] Respiratory: Denies cough or shortness of breath. [] Cardiovascular: Denies chest pain or edema. [] GI: Reports abdominal pain, nausea vomiting, denies bloody stools or diarrhea. [] : Denies dysuria. [] Musculoskeletal: Denies back pain or joint pain. [] Integument: Denies rash. [] Neurologic: Denies headache, focal weakness or sensory changes. [] Psychiatric: Denies depression or anxiety. [] Heart Score: Risk Factors: Risk Factors: DM, Current or recent (<one month) smoker, HTN, HLP, family histo ry of CAD, obesity. Risk Scores: Score 0 - 3: 2.5% MACE over next 6 weeks - Discharge Home Score 4 - 6: 20.3% MACE over next 6 weeks - Admit for Clinical Observation Score 7 - 10: 72.7% MACE over next 6 weeks - Early Invasive Strategies Current Medications: Current Medications Medications (Trade) Dose Ordered Sig/[place] Start Time Stop Time Status Last Admin Dose Admin Famotidine (Pepcid Vial) 20 mg 1X ONCE 03/23/20 14:15 03/23/20 14:16 DC 03/23/20 14:22 20 MG Info (CONTRAST GIVEN -- Rx MONITORING) 1 each PRN DAILY PRN 03/23/20 15:00 03/25/20 14:59 Iohexol (Omnipaque 300 Mg/ml) 75 ml 1X ONCE 03/23/20 14:45 03/23/20 14:52 DC 03/23/20 14:57 75 ML Morphine Sulfate (Morphine Sulfate) 5 mg 1X ONCE 03/23/20 14:15 03/23/20 14:16 DC 03/23/20 14:22 5 MG Multi-Ingredient Mouthwash/Gargle (Gi Cocktail) 20 ml 1X ONCE 03/23/20 16:00 03/23/20 16:01 03/23/20 15:54 20 ML Ondansetron HCl (Zofran) 4 mg 1X ONCE 03/23/20 14:30 03/23/20 14:31 DC 03/23/20 14:28 4 MG Sodium Chloride 1,000 ml @ 1,000 mls/hr 1X ONCE 03/23/20 14:15 03/23/20 15:14 DC 03/23/20 14:21 1,000 MLS/HR Allergies: Allergies: Allergies Coded Allergies Type Severity Reaction Last Updated Verified venom-honey bee Allergy Intermediate SWELLING 01/11/19 Yes Penicillins Adverse Reaction Intermediate NAUSEA/VOMITING 01/11/19 Yes aspirin Adverse Reaction Intermediate GI UPSET 01/11/19 Yes Physical Exam: PE: Constitutional: Well developed, well nourished, no acute distress, non-toxic appearance. [] HENT: Normocephalic, atraumatic, bilateral external ears normal, oropharynx moist, no oral exudates, nose normal. [] Eyes: PERRLA, EOMI, conjunctiva normal, no discharge. [] Neck: Normal range of motion, no tenderness, supple, no stridor. [] Cardiovascular:Heart rate regular rhythm, no murmur [] Lungs & Thorax: Bilateral breath sounds clear to auscultation [] Abdomen: Bowel sounds normal, soft, diffuse tenderness to the right side of the abdomen, negative psoas sign, negative Guevara sign, negative obturator sign, no masses, no pulsatile masses. [] Skin: Warm, dry, no erythema, no rash. [] Back: No tenderness, no CVA tenderness. [] Extremities: No tenderness, no cyanosis, no clubbing, ROM intact, no edema. [] Neurologic: Alert and oriented X 3, normal motor function, normal sensory function, no focal deficits noted. [] Psychologic: Affect normal, judgement normal, mood normal. [] Current Patient Data: Labs: Laboratory Tests Test 03/23/20 13:53 03/23/20 14:00 03/23/20 14:01 Urine Collection Type Void Urine Color Yellow Urine Clarity Clear Urine pH 8.5 (<5.0-8.0) Urine Specific [place] 1.025 (1.000-1.030) Urine Protein Negative mg/dL (NEG-TRACE) Urine Glucose (UA) Negative mg/dL (NEG) Urine Ketones (Stick) Negative mg/dL (NEG) Urine Blood Negative (NEG) Urine Nitrite Negative (NEG) Urine Bilirubin Negative (NEG) Urine Urobilinogen Dipstick 0.2 mg/dL (0.2 mg/dL) Urine Leukocyte Esterase Trace (NEG) Urine RBC 0 /HPF (0-2) Urine WBC Occ /HPF (0-4) Urine Squamous Epithelial Cells Mod /LPF Urine Bacteria Few /HPF (0-FEW) Urine Mucus Mod /LPF Urine Opiates Screen Neg (NEG) Urine Methadone Screen Neg (NEG) Urine Barbiturates Neg (NEG) Urine Phencyclidine Screen Neg (NEG) Urine Amphetamine/Methamphetamine Neg (NEG) Urine Benzodiazepines Screen Neg (NEG) Urine Cocaine Screen Neg (NEG) Urine Cannabinoids Screen Pos (NEG) Urine Ethyl Alcohol Neg (NEG) White Blood Count 16.9 x10^3/uL (4.0-11.0) H Red Blood Count 5.18 x10^6/uL (3.50-5.40) Hemoglobin 14.9 g/dL (12.0-15.5) Hematocrit 43.6 % (36.0-47.0) Mean Corpuscular Volume 84 fL (79-100) Mean Corpuscular Hemoglobin 29 pg (25-35) Mean Corpuscular Hemoglobin Concent 34 g/dL (31-37) Red Cell Distribution Width 13.5 % (11.5-14.5) Platelet Count 258 x10^3/uL (140-400) Neutrophils (%) (Auto) 88 % (31-73) H Lymphocytes (%) (Auto) 6 % (24-48) L Monocytes (%) (Auto) 6 % (0-9) Eosinophils (%) (Auto) 1 % (0-3) Basophils (%) (Auto) 0 % (0-3) Neutrophils # (Auto) 14.8 x10^3/uL (1.8-7.7) H Lymphocytes # (Auto) 1.0 x10^3/uL (1.0-4.8) Monocytes # (Auto) 1.0 x10^3/uL (0.0-1.1) Eosinophils # (Auto) 0.1 x10^3/uL (0.0-0.7) Basophils # (Auto) 0.1 x10^3/uL (0.0-0.2) Segmented Neutrophils % 72 % (35-66) H Band Neutrophils % 15 % (0-9) H Lymphocytes % 7 % (24-48) L Monocytes % 4 % (0-10) Basophils % 2 % (0-3) Toxic Granulation Slight Platelet Estimate Adequate (ADEQUATE) Sodium Level 141 mmol/L (136-145) Potassium Level 3.9 mmol/L (3.5-5.1) Chloride Level 103 mmol/L (98-107) Carbon Dioxide Level 26 mmol/L (21-32) Anion Gap 12 (6-14) Blood Urea Nitrogen 19 mg/dL (7-20) Creatinine 0.9 mg/dL (0.6-1.0) Estimated GFR (Cockcroft-Gault) 71.7 BUN/Creatinine Ratio 21 (6-20) H Glucose Level 130 mg/dL (70-99) H Calcium Level 8.6 mg/dL (8.5-10.1) Total Bilirubin 0.6 mg/dL (0.2-1.0) Aspartate Amino Transferase (AST) 26 U/L (15-37) Alanine Aminotransferase (ALT) 37 U/L (14-59) Alkaline Phosphatase 94 U/L (46-116) Total Protein 7.2 g/dL (6.4-8.2) Albumin 3.6 g/dL (3.4-5.0) Albumin/Globulin Ratio 1.0 (1.0-1.7) Ethyl Alcohol Level < 10 mg/dL (0-10) POC Urine HCG, Qualitative Hcg negative (Negative) Laboratory Tests 03/23/20 14:00 Laboratory Tests 03/23/20 14:00 Vital Signs: Vital Signs Date Time Temp Pulse Resp B/P (MAP) Pulse Ox O2 Delivery O2 Flow Rate FiO2 03/23/20 15:00 92 20 121/63 (82) 99 Room Air 03/23/20 13:50 98.0 98.0 EKG: EKG: [] Radiology/Procedures: Radiology/Procedures: []PROCEDURE: CT ABD PELV W/ IV CONTRST ONLY Exam: CT abdomen and pelvis with contrast INDICATION: Abdominal pain, nausea vomiting diarrhea TECHNIQUE: Sequential axial images through the abdomen and pelvis obtained 73 mL of Omni 300 IV contrast. Sagittal and coronal reformatted images were reconstructed from the axial data and reviewed. Comparisons: None FINDINGS: Heart size is normal. No pericardial effusion. Visualized lung bases are clear. No pleural effusion. Diffuse hepatic steatosis. Spleen, pancreas and adrenals are unremarkable. No perinephric inflammation or hydronephrosis. No renal or ureteral calculi are identified. No renal or ureteral calculi are identified. Bladder is decompressed not well evaluated. Uterus is nonenlarged. No abnormal adnexal mass. There is postsurgical changes noted in the left lower quadrant small bowel. Remainder of the large and small bowel are unremarkable. No free intra-abdominal air or fluid. No obstruction. Abdominal aorta has a normal course and caliber. Abdominal vasculature is patent. No enlarged abdominal lymph nodes are identified. No suspicious osseous lesions or acute fractures. IMPRESSION: 1. No acute process identified within the abdomen or pelvis. 2. Mild diffuse hepatic steatosis. Exposure: One or more of the following in the visualized dose reduction techniques were utilized for this examination: 1. Automated exposure control 2. Adjustment of the MA and/or KV according to patient size 3. Use of iterative of reconstructive technique Electronically signed by: Victor Manuel Cunningham MD (03/23/2020 3:23 PM) [id number] DICTATED and SIGNED BY: VICTOR MANUEL CUNNINGHAM MD DATE: 03/23/20 1523 Course & Med Decision Making: Course & Med Decision Making Pertinent Labs and Imaging studies reviewed. (See chart for details) This is a 35-year-old female patient presenting to the ED today complaining of nausea vomiting that began this morning as well as abdominal pain, negative urine hCG, urine analysis negative for infection, CBC with a WBC of 16.9, CMP with no acute findings, CT of the abdomen and pelvis are negative for any acute findings, patient was given IV fluids in the ED, pain is well controlled, discharge to home, follow-up with GI. Zofran prescription provided. Dragon Disclaimer: Dragon Disclaimer: This electronic medical record was generated, in whole or in part, using a voice recognition dictation system. Departure Departure Impression: Primary Impression: Nausea and vomiting Qualified Codes: R11.2 - Nausea with vomiting, unspecified Additional Impression: Abdominal pain Qualified Codes: R10.11 - Right upper quadrant pain Disposition: HOME, SELF-CARE Condition: STABLE Referrals: CORNELIUS CARLOS APRN (PCP) follow up next week GERMAN TRUJILLO MD follow up in one week Patient Instructions: Abdominal Pain (Nonspecific), Nausea and Vomiting Additional Instructions: You were evaluated in the emergency room for abdominal pain with nausea vomiting. Take the prescribed medications as ordered. Push fluids, maintain good hand regimen, follow-up with your own doctor or the provided GI doctor in 1 week if symptoms persist Scripts Ondansetron (ONDANSETRON ODT) 4 Mg Tab.rapdis 1 TAB PO PRN Q6-8HRS, #16 TAB Prov: SEBAS RICHMOND APRN 03/23/20 SEBAS RICHMOND APRN March 23, 2020 16:06
== END 2020-03-23 16:26 | disposition home or self-care (01) ==
LOC: ER 13:40
DX: R11.2 Nausea with vomiting, unspecified (principal); R10.11 Right upper quadrant pain; F31.9 Bipolar disorder, unspecified; G89.29 Other chronic pain; F17.200 Nicotine dependence, unspecified, uncomplicated; Z98.51 Tubal ligation status; Z87.442 Personal history of urinary calculi; Z88.0 Allergy status to penicillin; Z88.6 Allergy status to analgesic agent; Z91.030 Bee allergy status
CPT/HCPCS: 36415; 74177; 80053; 80307; 81001; 81025; 85007; 85025; 96361; 96374; 96375; 99285; G0480; J2270; J2405; J3490; J7030; Q9967

== ENCOUNTER 2020-04-14 17:09 | Emergency (ER) | payer MEDICAID ==
[~2020-04-14] VITALS: Ht 172.7 cm; Wt 104.5 kg
[~2020-04-14 17:09] MED LIST changes: +MULT-445 PO; -MULT1TAB52 PO
[2020-04-14 17:40] VITALS: BP 143/83
[2020-04-14] MEDS ORDERED: KETOROLAC 60 MG/2 ML VIAL. IM ONE (18:15)
--- NOTE | 2020-04-14 19:01 | RAD ---
Exam: Pelvis with left hip INDICATION: Left hip pain, unable to bear weight TECHNIQUE: Frontal view of the pelvis with frontal and frog-leg lateral views of the left hip Comparisons: None FINDINGS: Bone mineralization is normal. No acute or healed fractures. Soft tissues are unremarkable. Joint spaces are well-maintained. IMPRESSION: No acute osseous abnormality. Electronically signed by: Victor Manuel Arevalo MD (04/14/2020 6:57 PM) [id number]
[2020-04-14] MEDS ORDERED: METH4TAB2 PO (19:21)
--- NOTE | 2020-04-14 19:22 | PHYS DOC ---
Past Medical History Past Medical History: Anxiety, Bipolar, Depression, Kidney Stone, Ovarian Cyst Additional Past Medical Histor: CHRONIC BACK PAIN/LEG, PTSD,SMSA syndrome Past Surgical History: Tonsillectomy, Tubal ligation Additional Past Surgical Histo: "duodenojejunostomy", endometrial ablation Smoking Status: Current Some Day Smoker Alcohol Use: Rarely Drug Use: Marijuana General Adult EDM: Chief Complaint: OTHER COMPLAINTS HPI: HPI: Patient is a 35 year old female who presents to the emergency department with complaints of pain in her left hip and pelvis. Patient states she has chronic left leg pain. She was at work today when she felt like something popped and has been unable to bear weight or walk without experiencing severe pain since then. She denies any numbness, tingling, or weakness of the affected extremity. 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 She currently rates her pain a 5 out of 10 on the pain scale unless she moves or tries to stand and the pain increases to a 10 out of 10. Patient denies needing any pain medication at this time, states she has not taken anything for relief of her discomfort yet. Review of Systems: Review of Systems: Complete review of systems is negative unless otherwise documented in HPI. Heart Score: Risk Factors: Risk Factors: DM, Current or recent (<one month) smoker, HTN, HLP, family history of CAD, obesity. Risk Scores: Score 0 - 3: 2.5% MACE over next 6 weeks - Discharge Home Score 4 - 6: 20.3% MACE over next 6 weeks - Admit for Clinical Observation Score 7 - 10: 72.7% MACE over next 6 weeks - Early Invasive Strategies Current Medications: Current Medications Medications (Trade) Dose Ordered Sig/[facility] Start Time Stop Time Status Last Admin Dose Admin Ketorolac Tromethamine (Toradol Im) 60 mg 1X ONCE 04/14/20 18:15 04/14/20 18:16 DC 04/14/20 18:15 60 MG Allergies: Allergies: Allergies Coded Allergies Type Severity Reaction Last Updated Verified venom-honey bee Allergy Intermediate SWELLING 01/11/19 Yes Penicillins Adverse Reaction Intermediate NAUSEA/VOMITING 01/11/19 Yes aspirin Adverse Reaction Intermediate GI UPSET 01/11/19 Yes Physical Exam: PE: Constitutional: Well developed, well nourished, no acute distress, non-toxic appearance, obese. [] HENT: Normocephalic, atraumatic, bilateral external ears normal, nose normal. [] Eyes: PERRLA, EOMI, conjunctiva normal, no discharge. [] Neck: Normal range of motion, no stridor. [] Cardiovascular:Heart rate regular rhythm Lungs & Thorax: Respirations even and unlabored, no retractions, no respiratory distress Skin: Warm, dry, no erythema, no rash. [] Extremities: Left hip: limited range of motion due to pain no cyanosis, no obvious deformity, no crepitus, no edema Neurologic: Alert and oriented X 3, no focal deficits noted. [] Psychologic: Affect normal, judgement normal, mood normal. [] Current Patient Data: Vital Signs: Vital Signs Date Time Temp Pulse Resp B/P (MAP) Pulse Ox O2 Delivery O2 Flow Rate FiO2 04/14/20 17:40 97.8 87 18 143/83 (103) 100 Room Air 97.8 EKG: EKG: [] Radiology/Procedures: Radiology/Procedures: PROCEDURE: HIP LEFT 2V WITH PELVIS Exam: Pelvis with left hip INDICATION: Left hip pain, unable to bear weight TECHNIQUE: Frontal view of the pelvis with frontal and frog-leg lateral views of the left hip Comparisons: None FINDINGS: Bone mineralization is normal. No acute or healed fractures. Soft tissues are unremarkable. Joint spaces are well-maintained. IMPRESSION: No acute osseous abnormality.[] Course & Med Decision Making: Course & Med Decision Making Pertinent Labs and Imaging studies reviewed. (See chart for details) Patient is a 35-year-old female who presented to the emergency room with complaints of acute pain in her left hip after feeling something pop today. X- ray revealed no acute findings. The patient was given 60 mg of IM Toradol in the emergency department. Patient reports that she takes muscle relaxers at home already. Prescription was written for Medrol Dosepak. Patient instructed to follow-up with her primary care doctor in 1 to 2 days if symptoms persist, return to the ER symptoms worsen. Patient verbalized an understanding of home care, medications, follow-up, and return to ED instructions and was in agreement with the plan of care. [] Dragon Disclaimer: Dragon Disclaimer: This electronic medical record was generated, in whole or in part, using a voice recognition dictation system. Departure Departure Impression: Primary Impression: Strain of left hip Qualified Codes: S76.012A - Strain of muscle, fascia and tendon of left hip, initial encounter Disposition: 01 HOME, SELF-CARE Condition: STABLE Referrals: CORNELIUS CARLOS APRN (PCP) Patient Instructions: Hip Pain Additional Instructions: Fill prescription(s) and use as directed. Continue taking you muscle relaxers as reported. Recommend application of ice, elevation, and rest of affected extremity. Follow-up with your primary care doctor in 1 to 2 days if symptoms persist, return to the ER if your symptoms worsen. Scripts Methylprednisolone (MEDROL) 4 Mg Tab.ds.pk 1 PKG PO UD for 6 Days, #1 PKG 0 Refills Prov: SU MAE APRN 04/14/20 Justicifation of Admission Dx: Justifications for Admission: Justification of Admission Dx: N/A SU MAE APRN Apr 14, 2020 19:22
== END 2020-04-14 19:37 | disposition home or self-care (01) ==
LOC: ER 17:09
DX: S76.012A Strain of muscle, fascia and tendon of left hip, initial encounter (principal); F31.9 Bipolar disorder, unspecified; G89.29 Other chronic pain; Z98.51 Tubal ligation status; F17.200 Nicotine dependence, unspecified, uncomplicated; Z87.442 Personal history of urinary calculi; Z88.0 Allergy status to penicillin; Z88.6 Allergy status to analgesic agent; Z91.030 Bee allergy status; X50.9XXA Other and unspecified overexertion or strenuous movements or postures, initial encounter; Y93.89 Activity, other specified; Y92.89 Other specified places as the place of occurrence of the external cause; Y99.8 Other external cause status
CPT/HCPCS: 73502; 96372; 99283; J1885